=== PATIENT | female | born 1965 | race Caucasian/White ===

== ENCOUNTER 2019-12-21 10:14 | Outpatient (REF) | payer OTHER, SELFPAY ==
[2019-12-21 11:08] LABS: Glucose Urine UA NEG (NEG); Leukocyte Esterase Urine TRACE (NEG); Nitrite Urine NEG (NEG); Urine Blood NEG (NEG); Urine Ketones NEG (NEG); Urine Protein NEG (NEG-TRACE)
[2019-12-21 11:11] LABS: Appearance Urine HAZY; Color Urine YELLOW
[2019-12-21 11:43] LABS: Bacteria Urine 1+ /LPF; RBC Urine 0-2 /HPF (0); Squamous Epithelial Cell Urine 1+ /LPF
== END 2019-12-21 10:15 | disposition home or self-care (01) ==
LOC: HO.LAB 10:14
PROVIDERS: PCP Internal Medicine; Visit Provider Internal Medicine
DX: E78.01 Familial hypercholesterolemia (principal); E11.9 Type 2 diabetes mellitus without complications; E61.1 Iron deficiency; R30.0 Dysuria
CPT/HCPCS: 81001; 81003; 87086; 87088; 87186

== ENCOUNTER 2020-01-16 13:20 | Outpatient (REF) | payer OTHER, SELFPAY ==
[2020-01-16 16:43] LABS: Glucose Urine UA NEG (NEG); Leukocyte Esterase Urine NEG (NEG); Nitrite Urine POS (NEG); Urine Blood NEG (NEG); Urine Ketones NEG (NEG); Urine Protein NEG (NEG-TRACE)
[2020-01-16 16:44] LABS: Appearance Urine CLEAR; Color Urine YELLOW
[2020-01-16 16:51] LABS: Bacteria Urine 2+ /LPF; RBC Urine 0 /HPF (0); Squamous Epithelial Cell Urine 1+ /LPF; WBC Urine 0 /HPF (0-4)
== END 2020-01-16 13:21 | disposition home or self-care (01) ==
LOC: HO.HMGCLDS 13:20
PROVIDERS: PCP Internal Medicine; Visit Provider Internal Medicine
DX: E11.9 Type 2 diabetes mellitus without complications (principal); E78.01 Familial hypercholesterolemia; E61.1 Iron deficiency; R30.0 Dysuria
CPT/HCPCS: 81001; 87086; 87088; 87186

== ENCOUNTER 2020-02-04 07:39 | Outpatient (REF) | payer OTHER, SELFPAY ==
[2020-02-04 11:58] LABS: Glucose Urine UA NEG (NEG); Leukocyte Esterase Urine NEG (NEG); Nitrite Urine NEG (NEG); Urine Blood NEG (NEG); Urine Ketones NEG (NEG); Urine Protein NEG (NEG-TRACE)
[2020-02-04 12:07] LABS: Appearance Urine CLEAR; Color Urine YELLOW
== END 2020-02-04 07:40 | disposition home or self-care (01) ==
LOC: HO.HMGCLDS 07:39
PROVIDERS: PCP Internal Medicine; Visit Provider Internal Medicine
DX: N39.0 Urinary tract infection, site not specified (principal)
CPT/HCPCS: 81003

== ENCOUNTER 2020-03-10 06:20 | Outpatient (REF) | payer OTHER, SELFPAY | END 2020-03-10 06:21 | disposition home or self-care (01) | LOC: HO.LAB 06:20 | PROVIDERS: PCP Internal Medicine; Visit Provider Internal Medicine | DX: Z20.828 Contact with and (suspected) exposure to other viral communicable diseases (principal) | CPT/HCPCS: C9803; U0003 ==

== ENCOUNTER 2020-05-27 08:08 | Outpatient (REF) | payer OTHER, SELFPAY ==
[2020-05-27 11:30] LABS: Hematocrit 35.7 % (37-47); Hemoglobin 11.8 g/dl (12.0-16.0); Mean Corpuscular HGB Conc 33.1 g/dl (31.0-35.0); Mean Corpuscular Volume 90.8 fL (80-98); Mean Platelet Volume 9.8 fL (9.4-12.3); Platelet Count 449 X10*3/uL (160-400); Red Blood Count 3.93 X10*6/uL (4.20-5.50); Red Cell Distribution Width 12.6 % (11.0-16.0); White Blood Count 8.8 X10*3/uL (4.8-10.8)
[2020-05-27 11:41] LABS: Estimated Average Glucose 151 mg/dL; Hemoglobin A1c % 6.9 %
[2020-05-27 11:45] LABS: Iron 51 mcg/dL (30-160); Percent Iron Saturation 13 % (15-50); Total Iron Binding Capacity 382 mcg/dL (228-428); Unsaturated Iron Binding 331 ug/dL
[2020-05-27 11:54] LABS: Alanine Aminotransferase 14 U/L (0-31); Albumin Level 4.4 g/dL (3.5-5.0); Alkaline Phosphatase 83 U/L (39-117); Anion Gap 15 (12-20); Aspartate Amino Transferase 10 U/L (5-31); Bilirubin Total 0.3 mg/dL (0.0-1.0); Blood Urea Nitrogen 14 mg/dL (9-16); Calcium 9.9 mg/dL (8.4-10.2); Carbon Dioxide 28 mmol/L (22-29); Chloride 102 mmol/L (96-108); Cholesterol 137 mg/dL; Estimated Glomerular Filt Rate > 60; Glucose Fasting 247 mg/dL (60-99); HDL Cholesterol 47 mg/dL; LDL Cholesterol Calculated 38 mg/dl; Potassium 4.8 mmol/L (3.3-5.1); Sodium 140 mmol/L (135-145); Total Protein 6.7 g/dL (6.5-8.0); Triglycerides 263 mg/dL
[2020-05-27 12:02] LABS: Creatinine Urine 88.52 mg/dL; Microalbum/Creatinine Ratio Ur 41.7 ug/mg cr
== END 2020-05-27 08:09 | disposition home or self-care (01) ==
LOC: HO.HMGCLDS 08:08
PROVIDERS: PCP Internal Medicine; Visit Provider Internal Medicine
DX: I10 Essential (primary) hypertension (principal); N20.0 Calculus of kidney; E66.9 Obesity, unspecified; E78.5 Hyperlipidemia, unspecified
CPT/HCPCS: 36415; 80053; 80061; 82043; 83036; 83540; 85027

== ENCOUNTER 2020-06-12 11:47 | Outpatient (REF) | payer OTHER, SELFPAY ==
[2020-06-12 14:15] LABS: Glucose Urine UA NEG (NEG); Leukocyte Esterase Urine NEG (NEG); Nitrite Urine NEG (NEG); Specific Gravity - Urine 1.025 (1.005-1.025); Urine Blood NEG (NEG); Urine Ketones NEG (NEG); Urine Protein NEG (NEG-TRACE)
[2020-06-12 14:16] LABS: Appearance Urine CLEAR; Color Urine YELLOW
== END 2020-06-12 11:48 | disposition home or self-care (01) ==
LOC: HO.HMGCLNP 11:47
PROVIDERS: PCP Internal Medicine; Visit Provider Internal Medicine
DX: N20.0 Calculus of kidney (principal); I10 Essential (primary) hypertension
CPT/HCPCS: 81003

== ENCOUNTER 2020-08-21 08:49 | Outpatient (REF) | payer OTHER, SELFPAY ==
[2020-08-21 10:01] LABS: Mean Corpuscular HGB Conc 34.1 g/dl (31.0-35.0); Mean Platelet Volume 9.7 fL (9.4-12.3); Platelet Count 346 X10*3/uL (160-400); Red Blood Count 4.66 X10*6/uL (4.20-5.50); White Blood Count 8.4 X10*3/uL (4.8-10.8)
[2020-08-21 10:21] LABS: C Reactive Protein 0.76 mg/dL (< or = 0.50); Iron 73 mcg/dL (30-160); Percent Iron Saturation 16 % (15-50); Total Iron Binding Capacity 451 mcg/dL (228-428); Unsaturated Iron Binding 378 ug/dL
[2020-08-21 11:28] LABS: Folate 16.4 ng/mL (> or = 4.0); Vitamin B12 535 pg/mL (200-900)
== END 2020-08-21 08:50 | disposition home or self-care (01) ==
LOC: HO.LAB 08:49
PROVIDERS: PCP Internal Medicine; Visit Provider Internal Medicine
DX: D64.9 Anemia, unspecified (principal); R53.83 Other fatigue
CPT/HCPCS: 36415; 82607; 82746; 83540; 85027; 86140

== ENCOUNTER 2020-08-26 08:57 | Outpatient (REF) | payer OTHER, SELFPAY ==
[2020-08-26 11:20] LABS: MANUAL DIFF FLAG NO
[2020-08-26 11:33] LABS: Basophils Absolute Auto 0.1 X10*3/uL (0.0-0.2); Basophils Percent Auto 0.9 % (0-2); Eosinophils Absolute Auto 0.4 X10*3/uL (0.0-0.4); Eosinophils Percent Auto 3.8 % (0-4); Hematocrit 41.6 % (37-47); Hemoglobin 14.2 g/dl (12.0-16.0); Imm Gran Abs Auto 0.11 X10*3/uL (0.00-0.03); Imm Gran Pct Auto 1.2 % (0.0-0.4); Lymphocytes Absolute Auto 2.8 X10*3/uL (1.2-4.9); Lymphocytes Percent Auto 30.2 % (20-40); Mean Corpuscular HGB Conc 34.1 g/dl (31.0-35.0); Mean Corpuscular Hemoglobin 30.2 pg (27.0-33.0); Mean Corpuscular Volume 88.5 fL (80-98); Mean Platelet Volume 9.9 fL (9.4-12.3); Monocytes Absolute Auto 0.7 X10*3/uL (0.1-1.2); Neutrophils Absolute Auto 5.3 X10*3/uL (2.0-8.3); Neutrophils Percent Auto 56.9 % (45-73); Platelet Count 378 X10*3/uL (160-400); Red Cell Distribution Width 12.3 % (11.0-16.0); White Blood Count 9.2 X10*3/uL (4.8-10.8)
[2020-08-26 11:40] LABS: Estimated Average Glucose 217 mg/dL; Hemoglobin A1c % 9.2 %
[2020-08-26 12:04] LABS: Alanine Aminotransferase 13 U/L (0-31); Albumin Level 4.5 g/dL (3.5-5.0); Alkaline Phosphatase 87 U/L (39-117); Anion Gap 13 (12-20); Aspartate Amino Transferase 17 U/L (5-31); Bilirubin Total 0.4 mg/dL (0.0-1.0); Blood Urea Nitrogen 13 mg/dL (9-16); Calcium 10.4 mg/dL (8.4-10.2); Carbon Dioxide 28 mmol/L (22-29); Chloride 102 mmol/L (96-108); Cholesterol 162 mg/dL; Estimated Glomerular Filt Rate > 60; Glucose Fasting 215 mg/dL (60-99); HDL Cholesterol 56 mg/dL; Potassium 4.3 mmol/L (3.3-5.1); Sodium 139 mmol/L (135-145); Total Protein 7.1 g/dL (6.5-8.0); Triglycerides 427 mg/dL
[2020-08-26 12:07] LABS: TSH reflex Free T4 0.97 uIU/mL (0.32-4.0)
== END 2020-08-26 08:58 | disposition home or self-care (01) ==
LOC: HO.HMGCLDS 08:57
PROVIDERS: PCP Internal Medicine; Visit Provider Internal Medicine
DX: I10 Essential (primary) hypertension (principal); E78.5 Hyperlipidemia, unspecified; E66.9 Obesity, unspecified; E11.9 Type 2 diabetes mellitus without complications
CPT/HCPCS: 36415; 80053; 80061; 83036; 84443; 85025

== ENCOUNTER 2020-09-14 10:17 | Outpatient (REF) | payer OTHER, SELFPAY ==
--- NOTE | ~2020-09-14 | FL_ITS ---
EXAMINATION: FL BARIUM SWALLOW CLINICAL INFORMATION: Nausea COMPARISON: None TECHNIQUE: Barium swallow examination is performed using fluoroscopic evaluation in addition to multiple fluoroscopic spot views. The patient is imaged both upright and prone and using both thick and thin sulfate along with effervescent granules. Fluoroscopy time: 1.9 minutes DAP: 19.8 Gycm2 Images: 54 FINDINGS: Following oral administration of thick barium and barium coated turkey there is normal propagation bolus from the oral cavity through the pharynx, esophagus into stomach without any evidence of obstruction, narrowing or stricture. On oral administration of thin barium in prone lying position there is good opacification of the entire esophagus without obstruction or narrowing. There is small sliding hiatal hernia with mild gastroesophageal reflux. FL/FL barium swallow IMPRESSION: Small sliding hiatal hernia with mild gastroesophageal reflux.
== END 2020-09-14 10:18 | disposition home or self-care (01) ==
LOC: HO.XRAY 10:17
PROVIDERS: PCP Internal Medicine; Visit Provider Physician Assistant
DX: R10.13 Epigastric pain (principal); R11.0 Nausea; K21.9 Gastro-esophageal reflux disease without esophagitis
CPT/HCPCS: 74220

== ENCOUNTER 2020-09-15 07:20 | Outpatient (REF) | payer OTHER, SELFPAY ==
--- NOTE | ~2020-09-15 | US_ITS ---
EXAMINATION: US ABDOMEN LIMITED CLINICAL INFORMATION: Right upper quadrant pain. COMPARISON: Ultrasound kidneys dated 07/03/2019 09/06/20192010. KUBs dated 05/14/2020 and 03/04/2020. TECHNIQUE: Real-time imaging of the right upper quadrant abdominal viscera. FINDINGS: PANCREAS: Not well visualized due to bowel gas. LIVER: There is fatty infiltration of the liver. No focal liver lesion is seen. There is no intrahepatic biliary duct dilatation seen. GALLBLADDER: Normal. The gallbladder is physiologically distended without evidence of stones, sludge, polyps, wall thickening or pericholecystic fluid. COMMON BILE DUCT: Not well visualized. The visualized common bile duct is normal in caliber measuring 0.59 cm in diameter. RIGHT KIDNEY: There is a 3 mm echogenic density with twinkle artifact in the midpole questionable for a stone. No hydronephrosis or renal calculi. The kidney measures 10.6 cm in maximum dimension. The previously identified right perinephric hematoma is no longer seen. FREE FLUID: None. US/US abdomen limited IMPRESSION: Echogenic liver suggestive of fatty infiltration. Normal-appearing gallbladder. Question small right renal stone. Limited visualization of the pancreas and common bile duct.
== END 2020-09-15 07:21 | disposition home or self-care (01) ==
LOC: HO.US 07:20
PROVIDERS: Visit Provider Internal Medicine
DX: R10.11 Right upper quadrant pain (principal)
CPT/HCPCS: 76705

== ENCOUNTER 2020-11-04 10:36 | Outpatient (REF) | payer OTHER, SELFPAY ==
--- NOTE | ~2020-11-04 | XR_ITS ---
EXAMINATION: XR CHEST 2 VIEWS CLINICAL INFORMATION: Wheezing; history of asthma. COMPARISON: Chest radiograph dated 02/20/2016. TECHNIQUE: Frontal and lateral views of the chest were obtained. FINDINGS: The heart, great vessels, pulmonary vasculature and mediastinum are normal. The lungs show no focal infiltrate, effusion or pneumothorax. There is no acute osseous abnormality. XR/XR chest 2V IMPRESSION: No active cardiopulmonary disease.
== END 2020-11-04 10:37 | disposition home or self-care (01) ==
LOC: HO.XRAY 10:36
PROVIDERS: PCP Internal Medicine; Visit Provider Physician Assistant
DX: R05 Cough (principal); R06.2 Wheezing
CPT/HCPCS: 71046

== ENCOUNTER 2020-11-18 14:44 | Outpatient (REF) | payer OTHER, SELFPAY ==
[2020-11-18 16:58] LABS: Appearance Urine CLEAR; Color Urine YELLOW; Glucose Urine UA NEG (NEG); Leukocyte Esterase Urine NEG (NEG); Nitrite Urine NEG (NEG); PH 5.5 (5.0-8.0); Specific Gravity - Urine >= 1.030 (1.005-1.025); Urine Blood NEG (NEG); Urine Ketones NEG (NEG); Urine Protein NEG (NEG-TRACE)
== END 2020-11-18 14:45 | disposition home or self-care (01) ==
LOC: HO.LAB 14:44
PROVIDERS: PCP Internal Medicine; Visit Provider Physician Assistant
DX: N20.0 Calculus of kidney (principal)
CPT/HCPCS: 81003

== ENCOUNTER 2020-12-07 13:17 | Outpatient (REF) | payer OTHER, SELFPAY ==
[2020-12-07 14:59] LABS: Erythrocyte Sedimentation Rate 5 MM/HR (0-20)
[2020-12-07 15:06] LABS: Thyroid Stimulating Hormone 0.76 uIU/mL (0.32-4.0)
[2020-12-07 15:07] LABS: Albumin Level 4.5 g/dL (3.5-5.0); C Reactive Protein 0.57 mg/dL (< or = 0.50)
[2020-12-12 10:47] LABS: Endomysial IgA Antibody Negative (Negative)
[2020-12-14 09:12] LABS: Transglutaminase IgA <1.0 U/mL
== END 2020-12-07 13:18 | disposition home or self-care (01) ==
LOC: HO.LAB 13:17
PROVIDERS: PCP Internal Medicine; Visit Provider Physician Assistant
DX: R19.7 Diarrhea, unspecified (principal); E11.9 Type 2 diabetes mellitus without complications; K59.09 Other constipation
CPT/HCPCS: 36415; 82040; 83516; 84443; 85652; 86140; 86255; 86256

== ENCOUNTER 2020-12-08 14:18 | Outpatient (REF) | payer OTHER, SELFPAY ==
[2020-12-08 15:22] LABS: CDiff Gene PCR NEGATIVE (Negative)
== END 2020-12-08 14:19 | disposition home or self-care (01) ==
LOC: HO.LNP 14:18
PROVIDERS: Visit Provider Physician Assistant
DX: R19.7 Diarrhea, unspecified (principal); K59.09 Other constipation
CPT/HCPCS: 87177; 87209; 87329; 87493

== ENCOUNTER 2021-01-04 07:46 | Emergency (ER) | payer OTHER, SELFPAY ==
--- NOTE | ~2021-01-04 | CT_ITS ---
EXAMINATION: CT ABDOMEN AND PELVIS WITH CONTRAST CLINICAL INFORMATION: Abdominal pain. COMPARISON: None TECHNIQUE: Multidetector volumetric images were obtained from the superior aspect of the liver through the pubic symphysis following administration 85 mL of Omnipaque 350 intravenous contrast. Sagittal and coronal reformatted images were obtained on the technologist's workstation. Oral contrast: No This CT examination was performed using dose optimization techniques as appropriate, variously including the following: *Automated exposure control *Adjustment of mA and/or kV according to patient size (this includes techniques or standardized protocols for targeted exams where dose is matched to indication/reason for exam; i.e. extremities or head) *Use of iterative reconstruction technique DLP: 653 mGy-cm FINDINGS: LUNG BASES: The visualized lung bases are unremarkable. LIVER, GALLBLADDER, AND BILIARY TREE: Diffuse decreased attenuation without focal abnormality. No gallbladder/biliary abnormality PANCREAS: Unremarkable. SPLEEN: Unremarkable. ADRENAL GLANDS: A left adrenal nodule measures 1.5 cm (HU 47), (image 26, series 3). The right adrenal gland is unremarkable. 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 There is mild right hydroureteronephrosis caused by a 0.6 cm (HU 546) ovoid calculus in the distal one third of the right ureter (image 69, series 3). The left kidney shows a noncalcified, fluid attenuation focus in the lower pole measuring 1.1 cm (image 64, series 4). BLADDER: Unremarkable. GASTROINTESTINAL TRACT: The stomach and small bowel are unremarkable. The appendix is not calculi identified. The colon is unremarkable. ABDOMINAL WALL: Small to moderate-sized fat-containing umbilical hernia without associated abnormality. LYMPH NODES: Normal. VASCULAR: Unremarkable. PELVIC VISCERA: Unremarkable. OSSEOUS STRUCTURES: Mild multilevel degenerative changes in the thoracolumbar spine and sacroiliac joints bilaterally. CT/CT abdomen pelvis w con IMPRESSION: 1. Mild right hydroureteronephrosis caused by a 0.6 cm calculus in the distal one third of the right ureter. 2. Hepatic steatosis. 3. Left adrenal nodule is indeterminate. This could be monitored for stability with a CT scan of the abdomen and pelvis with and without intravenous contrast utilizing adrenal nodule protocol and one year.
[2021-01-04 07:58] VITALS: BP 188/72; PULSE 61; RESP 16; TEMP 36.7; O2SAT 99; BMI 35.4
[2021-01-04] MEDS: Ondansetron ODT 4 MG TAB.RAPDIS TRANSLINGU (08:05)
--- NOTE | 2021-01-04 08:53 | ED_ITS ---
HPI - Abdominal Pain General Chief Complaint: Abdominal Pain Stated Complaint: low rt abd pain Time Seen by Provider: 01/04/21 08:44 Source: patient Mode of arrival: ambulatory Limitations: no limitations History of Present Illness HPI narrative: 55-year-old female presents to the emergency department complaining of right lower quadrant pain. She states that she woke up during the night approximately 6 hours prior to arrival with abdominal pain. She denies cough fever or chest pain she states she is immunized for COVID she states she still has appendix as well. History of diverticulosis without any diverticulitis history. She denies having this pain in the past she has nausea vomiting and diarrhea as well. She gets Zofran with resolution of her nausea prior to my arrival in the room. MD elicited complaint: abdominal pain Related Data Home Medications Medication Instructions Recorded Confirmed alprazolam 0.25 mg tablet 0.25 mg PO DAILY PRN 02/25/20 09/25/20 aspirin 81 mg tablet,delayed 81 mg PO DAILY 02/25/20 09/25/20 release duloxetine 60 mg capsule,delayed 120 mg PO DAILY cap 02/25/20 09/25/20 release flu vac qs 2019(4 yr up)CD(PF) ml IM 02/25/20 09/25/20 oxcarbazepine 300 mg tablet 300 mg PO BID 02/25/20 09/25/20 omega-3 fatty acids 1,000 mg 1,000 mg PO DAILY 08/26/20 09/25/20 capsule (Fish Oil Concentrate) valacyclovir 500 mg tablet 500 mg PO DAILY 08/26/20 09/25/20 Previous Rx's Medication Instructions Recorded estradiol 10 mcg vaginal tablet 10 mcg VAGINAL 2XW #90 tab 02/25/20 losartan 50 mg tablet 50 mg PO BID #180 tab 05/27/20 cyclobenzaprine 5 mg tablet 5 - 10 mg PO TID PRN #15 tab 08/04/20 naproxen 500 mg tablet 500 mg PO BID PRN #30 tab 08/04/20 albuterol sulfate 90 mcg/actuation 1 puff INHALATION Q4H #8.5 g 08/26/20 aerosol inhaler amlodipine 2.5 mg tablet 2.5 mg PO DAILY #90 tab 10/05/20 insulin glargine 100 unit/mL See Rx Instructions SUBCUT 10/05/20 subcutaneous solution .COMPLEX #30 ml insulin lispro 100 unit/mL 10 unit SUBCUT BID #15 ml 10/05/20 subcutaneous pen (Humalog KwikPen (U-100) Insulin) metformin 1,000 mg tablet 1,000 mg PO BID #180 tab 10/05/20 omeprazole 40 mg capsule,delayed 40 mg PO DAILY #90 cap 10/05/20 release rosuvastatin 20 mg tablet 20 mg PO DAILY #90 tab 10/29/20 metoprolol tartrate 50 mg tablet 50 mg PO BID #180 tab 11/17/20 blood-glucose sensor (Dexcom G6 1 ea TOPICAL DIRECTED #3 ea 12/14/20 Sensor) insulin degludec 200 unit/mL (3 70 unit SUBCUT BID #27 ml 12/15/20 mL) subcutaneous pen (Tresiba FlexTouch U-200 insulin) pen needle, diabetic 32 gauge x #100 ea 12/23/20 (BD Ultra-Fine Ellen Pen Needle) blood-glucose transmitter (Dexcom #1 ea 01/01/21 G6 Transmitter) Allergies Allergy/AdvReac Type Severity Reaction Status Date / Time atorvastatin [Lipitor] Allergy Unknown body aches Verified 01/04/21 08:05 azithromycin [From Zithromax] Allergy Unknown Unknown Verified 01/04/21 08:05 codeine [CODEINE] Allergy Unknown UNKNOWN Verified 01/04/21 08:05 liraglutide [Victoza] Allergy Unknown vomiting Verified 01/04/21 08:05 metronidazole [From FLAGYL] Allergy Unknown UNKNOWN Verified 01/04/21 08:05 external yeast cream Allergy Unknown unknown Uncoded 08/04/20 08:07 Review of Systems Review of Systems Review of systems: General: Patient denies any fever chills recent illness or falls Musculoskeletal: Denies back pain or body aches or other injuries HEENT: denies headache, runny nose, ear pain Respiratory: denies shortness of breath, cough Cardiovascular: no chest pain or palpitations : denies dysuria, frequency Abdomen: Diarrhea nausea vomiting right lower quadrant abdominal pain Extremities: no swelling, no pain Skin: no diaphoresis Yes all other systems are reviewed and are negative Physical Exam Vital Signs: Vital Signs: Last Vital Signs Temp 98.0 F 01/04/21 07:58 Pulse 67 01/04/21 11:35 Resp 18 01/04/21 11:35 BP 163/74 H 01/04/21 11:35 Pulse Ox 98 01/04/21 11:35 Body Mass Index 35.4 General: Well-appearing well-nourished in no signs of distress HEENT: Normocephalic atraumatic Neck: No signs of JVD, no masses no tenderness or lymphadenopathy Cardiovascular: Regular rate and rhythm Respiratory: Clear to auscultation bilaterally Abdomen: Soft tender to right mid to upper abdomen Extremities: Normal pedal pulses no signs of edema Skin: Dry warm no rashes Back: No tenderness full ROM MDM - Abdominal Pain MDM Narrative Medical decision making narrative: Patient with abdominal pain on the right side to right upper although patient for CT scan check labs including of these lipase give the patient fluids and morphine. Pain well controlled with morphine I will give patient some Toradol CT shows a 6 mm stone. Urine still pending. Patient has a known stone on the right side he states he has been in her kidney they did try lithotripsy which ended up with a large hematoma she is followed at [facility]. I feel comfortable sending the patient home. I called lab who stated there were 1 to 4 WBC's I feel comfortable sending home off antibiotics WBC with no signs of infection and looks so comfortable. Differential Diagnosis Differential diagnosis: Likely abdominal pain, acute appendicitis, diverticulitis, gastroenteritis, gastritis, pancreatitis and peptic ulcer disease Lab Data Result diagrams: 01/04/21 09:31 01/04/21 09:31 Labs: Lab Results 01/04/21 01/04/21 01/04/21 Range/Units 09:31 09:31 11:58 WBC 13.5 H (4.8-10.8) X10*3/uL RBC 4.33 (4.20-5.50) X10*6/uL Hgb 13.2 (12.0-16.0) g/dl Hct 38.4 (37-47) % MCV 88.7 (80-98) fL MCH 30.5 (27.0-33.0) pg MCHC 34.4 (31.0-35.0) g/dl RDW 12.1 (11.0-16.0) % Plt Count 327 (160-400) X10*3/uL MPV 9.4 (9.4-12.3) fL Immature Gran % (Auto) 0.6 H (0.0-0.4) % Neut % (Auto) 70.1 (45-73) % Lymph % (Auto) 16.0 L (20-40) % [place]lier % (Auto) 6.7 (2-11) % Eos % (Auto) 6.1 H (0-4) % Baso % (Auto) 0.5 (0-2) % Lymph # (Auto) 2.2 (1.2-4.9) X10*3/uL [place]lier # (Auto) 0.9 (0.1-1.2) X10*3/uL Eos # (Auto) 0.8 H (0.0-0.4) X10*3/uL Baso # (Auto) 0.1 (0.0-0.2) X10*3/uL Abs Immat Gran (auto) 0.08 H (0.00-0.03) X10*3/uL Absolute Neuts (auto) 9.5 H (2.0-8.3) X10*3/uL Absolute Nucleated RBC 0.000 (0.0-0.012) X10*3/uL Nucleated RBC % (auto) 0.0 (0.0-0.2) /100WBC Sodium 140 (135-145) mmol/L Potassium 5.3 H D (3.3-5.1) mmol/L Chloride 105 (96-108) mmol/L Carbon Dioxide 23 (22-29) mmol/L Anion Gap 17 (12-20) BUN 12 (9-16) mg/dL Creatinine 0.74 (0.5-1.4) mg/dL Estim Creat Clear Calc 89.7 Estimated GFR > 60 Random Glucose 202 H (60-115) mg/dL Calcium 10.1 (8.4-10.2) mg/dL Total Bilirubin 0.6 (0.0-1.0) mg/dL Direct Bilirubin 0.2 (0.0-0.5) mg/dL AST 32 H D (5-31) U/L ALT 21 (0-31) U/L Alkaline Phosphatase 69 D (39-117) U/L Total Protein 7.2 (6.5-8.0) g/dL Albumin 4.3 (3.5-5.0) g/dL Lipase 10 (8-78) U/L Urine Color YELLOW Urine Appearance HAZY Urine pH 6.0 (5.0-8.0) Ur Specific [place] >= 1.030 H (1.005-1.025) Urine Protein 1+ H (NEG-TRACE) MG/DL Urine Glucose (UA) NEG (NEG) MG/DL Urine Ketones NEG (NEG) MG/DL Urine Blood 3+ H (NEG) Urine Nitrite POS H (NEG) Ur Leukocyte Esterase NEG (NEG) Discharge Plan Discharge Clinical Impression: Kidney stone on right side Patient Disposition: Home, Self-Care Instructions: Kidney Stones (ED) Additional Instructions: Please call follow-up with urologist if you have any other concerns please do not hesitate to come back to emergency department. Prescriptions: No Action amlodipine 2.5 mg tablet 2.5 mg PO DAILY Qty: 90 RF: 3 omeprazole 40 mg capsule,delayed release(DR/EC) 40 mg PO DAILY Qty: 90 RF: 3 metformin 1,000 mg tablet 1,000 mg PO BID Qty: 180 RF: 3 insulin lispro [Humalog KwikPen Insulin] 100 unit/mL insulin pen 10 unit subcut BID Qty: 15 RF: 4 insulin glargine 100 unit/mL solution See Rx Instructions subcut .COMPLEX Qty: 30 RF: 4 rosuvastatin 20 mg tablet 20 mg PO DAILY Qty: 90 RF: 3 metoprolol tartrate 50 mg tablet 50 mg PO BID Qty: 180 RF: 3 Dexcom G6 Sensor Device 1 ea topical DIRECTED Qty: 3 RF: 11 Tresiba FlexTouch U-200 200 unit/mL (3 mL) insulin pen 70 unit subcut BID Qty: 27 RF: 8 (DME) pen needle, diabetic [BD Ultra-Fine Ellen Pen Needle] 32 gauge x 5/32 needle See Rx Instructions .ROUTE .MEDSUPPLY Qty: 100 RF: 3 (DME) Dexcom G6 Transmitter Device See Rx Instructions .ROUTE .MEDSUPPLY Qty: 1 RF: 3 valacyclovir 500 mg tablet 500 mg PO DAILY RF: 0 omega-3 fatty acids [Fish Oil Concentrate] 1,000 mg capsule 1,000 mg PO DAILY RF: 0 albuterol sulfate 90 mcg/actuation HFA aerosol inhaler 1 puff inhalation Q4H Qty: 8.5 RF: 4 cyclobenzaprine 5 mg tablet 5 - 10 mg PO TID PRN (Reason: muscle spasm) Qty: 15 RF: 0 naproxen 500 mg tablet 500 mg PO BID PRN (Reason: pain) Qty: 30 RF: 0 alprazolam 0.25 mg tablet 0.25 mg PO DAILY PRNRF: 0 aspirin 81 mg tablet,delayed release (DR/EC) 81 mg PO DAILY RF: 0 oxcarbazepine 300 mg tablet 300 mg PO BID RF: 0 Flucelvax Quad (PF) 60 mcg (15 mcg x 4)/0.5 mL syringe IM RF: 0 duloxetine 60 mg capsule,delayed release(DR/EC) 120 mg PO DAILY RF: 0 estradiol 10 mcg tablet 10 mcg vaginal 2XW Qty: 90 RF: 0 losartan 50 mg tablet 50 mg PO BID Qty: 180 RF: 3 PMFSH Past Medical History Medical History Anemia Annual physical exam Anxiety Depression Fatigue Frequent urinary tract infections GERD (gastroesophageal reflux disease) HTN (hypertension) Hyperlipidemia IDDM (insulin dependent diabetes mellitus) Mammogram normal Nephrolithiasis Normal Pap smear Obesity Osteoarthritis of knees, bilateral RUQ abdominal pain Sleep apnea Surgical History H/O colonoscopy No pertinent past surgical history Family History Family History Father No problems noted. Mother Renal failure Brother No problems noted. Brother Sarcoidosis Sister No problems noted. Daughter Asperger's disorder ADHD Social History Social History Housing: House Alcohol intake: current Alcohol intake frequency: holidays/special occasions only Patient Tobacco Use Status: Former Tobacco user e-Cigarette/Vaping Use: Never Used Second Hand Smoke Exposure: No Use of substances other than those prescribed or required for medical reasons: No Advance Directives: No Patient : No service: No Current occupational status: employed Current occupation: [employer]
[2021-01-04 09:35] LABS: MANUAL DIFF FLAG NO
[2021-01-04] MEDS: Morphine Sulfate 4 MG/ML CARTRIDGE IVPUSH (09:39)
[2021-01-04] MEDS: 0.9 % Sodium Chloride 500 ML 999 ML IV ×2 (09:39→11:33)
[2021-01-04 09:40] LABS: Basophils Absolute Auto 0.1 X10*3/uL (0.0-0.2); Basophils Percent Auto 0.5 % (0-2); Eosinophils Absolute Auto 0.8 X10*3/uL (0.0-0.4); Eosinophils Percent Auto 6.1 % (0-4); Hematocrit 38.4 % (37-47); Hemoglobin 13.2 g/dl (12.0-16.0); Imm Gran Abs Auto 0.08 X10*3/uL (0.00-0.03); Imm Gran Pct Auto 0.6 % (0.0-0.4); Lymphocytes Absolute Auto 2.2 X10*3/uL (1.2-4.9); Mean Corpuscular HGB Conc 34.4 g/dl (31.0-35.0); Mean Corpuscular Hemoglobin 30.5 pg (27.0-33.0); Mean Corpuscular Volume 88.7 fL (80-98); Mean Platelet Volume 9.4 fL (9.4-12.3); Monocytes Absolute Auto 0.9 X10*3/uL (0.1-1.2); Monocytes Percent Auto 6.7 % (2-11); Neutrophils Absolute Auto 9.5 X10*3/uL (2.0-8.3); Neutrophils Percent Auto 70.1 % (45-73); Platelet Count 327 X10*3/uL (160-400); Red Blood Count 4.33 X10*6/uL (4.20-5.50); Red Cell Distribution Width 12.1 % (11.0-16.0); White Blood Count 13.5 X10*3/uL (4.8-10.8)
--- NOTE | 2021-01-04 09:40 | PC.NURSE ---
pt alert and oriented, skin pwd, respirations even and unlabored, pt reports right lower abd pain, vomiting/diarrhea that started this morning.
[2021-01-04 10:02] LABS: Alanine Aminotransferase 21 U/L (0-31); Albumin Level 4.3 g/dL (3.5-5.0); Alkaline Phosphatase 69 U/L (39-117); Anion Gap 17 (12-20); Aspartate Amino Transferase 32 U/L (5-31); Bilirubin Direct 0.2 mg/dL (0.0-0.5); Bilirubin Total 0.6 mg/dL (0.0-1.0); Blood Urea Nitrogen 12 mg/dL (9-16); Calcium 10.1 mg/dL (8.4-10.2); Carbon Dioxide 23 mmol/L (22-29); Chloride 105 mmol/L (96-108); Creatinine Clr Calc Pharmacy 89.7; Estimated Glomerular Filt Rate > 60; Glucose Random 202 mg/dL (60-115); Lipase 10 U/L (8-78); Potassium 5.3 mmol/L (3.3-5.1); Sodium 140 mmol/L (135-145); Total Protein 7.2 g/dL (6.5-8.0)
[2021-01-04] MEDS: iohexoL 350 MG/ML 100 ML INFUS..BTL IV (11:07)
[2021-01-04 11:35] VITALS: BP 163/74; PULSE 67; RESP 18; O2SAT 98
--- NOTE | 2021-01-04 11:51 | PC.NURSE ---
patient a&ox3, vss, family at bedside, ivf running per order, awaiting results of radiology, will continue to monitor
[2021-01-04 12:06] LABS: Appearance Urine HAZY; Color Urine YELLOW; Glucose Urine UA NEG (NEG); Leukocyte Esterase Urine NEG (NEG); Nitrite Urine POS (NEG); Specific Gravity - Urine >= 1.030 (1.005-1.025); UACC Culture Trigger YES; Urine Blood 3+ (NEG); Urine Ketones NEG (NEG); Urine Protein 1+ MG/DL (NEG-TRACE)
[2021-01-04 12:40] LABS: Bacteria Urine 4+ /LPF; Squamous Epithelial Cell Urine TRACE /LPF
== END 2021-01-04 12:57 | disposition home or self-care (01) ==
PROVIDERS: Emergency Provider Student in an Organized Health Care Education/Training Program; PCP Internal Medicine
DX: N20.0 Calculus of kidney (principal); N39.0 Urinary tract infection, site not specified; Z79.899 Other long term (current) drug therapy
CPT/HCPCS: 36415; 74177; 80048; 80076; 81001; 83690; 85025; 87086; 87186; 96374; 99284; J2270; Q9967

== ENCOUNTER 2021-01-11 14:09 | Day surgery (SDC) | payer OTHER, SELFPAY ==
--- NOTE | 2021-01-08 15:17 | HO.ANESPROP2 ---
Documented by User: Katharine Sims NP 01/08/21 15:27 HPI - Anesthesia Eval Consult details Narrative: 55yo F for Right Cystoscopy, Ureteroroscopy, Retro, Laser with Stent 01/07/21 T/C with patient - reports slow to metabolize Rocuronium. Requesting TIVA PMFSH Active Problems Active Problems: All Active Problems (Updated 01/08/21 @ 14:10 by CLAUDIA Theodore) Kidney stone on right side (Acute) UTI (urinary tract infection) (Acute) Adrenal mass (Acute) Diarrhea (Acute) Wheeze (Acute) Chronic cough (Acute) Acid reflux (Acute) Nausea (Acute) Epigastric pain (Acute) RUQ abdominal pain (Acute) Annual physical exam (Acute) Fatigue (Acute) Cervical paraspinous muscle spasm (Acute) Anemia (Acute) Nephrolithiasis (Acute) HTN (hypertension) (Acute) Obesity (Acute) Osteoarthritis of knees, bilateral (Acute) Mammogram normal (Acute) Normal Pap smear (Acute) Hyperlipidemia (Acute) IDDM (insulin dependent diabetes mellitus) (Acute) Frequent urinary tract infections (Acute) Past Medical History Medical History Adrenal mass Anemia Annual physical exam Anxiety Depression Fatigue Frequent urinary tract infections GERD (gastroesophageal reflux disease) HTN (hypertension) Hyperlipidemia IDDM (insulin dependent diabetes mellitus) Mammogram normal Nephrolithiasis Normal Pap smear Obesity Osteoarthritis of knees, bilateral RUQ abdominal pain Sleep apnea Family History Family History Father No problems noted. Mother Renal failure Brother No problems noted. Brother Sarcoidosis Sister No problems noted. Daughter Asperger's disorder ADHD Surgical History Surgical History H/O colonoscopy No pertinent past surgical history Social History Social History Housing: House Alcohol intake: current Alcohol intake frequency: holidays/special occasions only Patient Tobacco Use Status: Former Tobacco user e-Cigarette/Vaping Use: Never Used Second Hand Smoke Exposure: No Use of substances other than those prescribed or required for medical reasons: No Are you DNR?: No Advance Directives: No Advance Directives Information Provided: Yes service: No Current occupational status: employed Current occupation: RN Meds Allergies Allergy/AdvReac Type Severity Reaction Status Date / Time codeine [CODEINE] Allergy Severe Hives Verified 01/11/21 15:09 liraglutide [Victoza] Allergy Severe vomiting Verified 01/11/21 15:09 metronidazole [From FLAGYL] Allergy Severe Anaphylaxis Verified 01/11/21 15:09 azithromycin [From Zithromax] Allergy Intermediate Hives Verified 01/11/21 15:09 atorvastatin [Lipitor] Allergy Mild body aches Verified 01/11/21 15:09 external yeast cream Allergy Intermediate Itching Uncoded 01/11/21 15:09 Home Medications Medication Instructions Recorded Confirmed Last Taken Type alprazolam 0.25 mg tablet 0.25 mg PO DAILY PRN 02/25/20 09/25/20 Unknown History aspirin 81 mg tablet,delayed 81 mg PO DAILY 02/25/20 09/25/20 Unknown History release duloxetine 60 mg capsule,delayed 120 mg PO DAILY cap 02/25/20 09/25/20 Unknown History release flu vac qs 2019(4 yr up)CD(PF) ml IM 02/25/20 09/25/20 Unknown History oxcarbazepine 300 mg tablet 300 mg PO BID 02/25/20 09/25/20 Unknown History omega-3 fatty acids 1,000 mg 1,000 mg PO DAILY 08/26/20 09/25/20 Unknown History capsule (Fish Oil Concentrate) valacyclovir 500 mg tablet 500 mg PO DAILY 08/26/20 09/25/20 Unknown History Exam Exam Date and Time: January 08, 2021 151 Pertinent Lab Results Pertinent Lab Results: Laboratory Tests 01/04/21 01/04/21 09:31 09:31 WBC 13.5 H Hgb 13.2 Hct 38.4 Plt Count 327 Sodium 140 Potassium 5.3 H D Chloride 105 Carbon Dioxide 23 BUN 12 Creatinine 0.74 Assessment and Plan Assessment Anesthesia Assessment: Chart Reviewed Documented by User: Tracie Carlos MD 01/11/21 15:14 [facility] Past Medical History Medical History Adrenal mass Anemia Annual physical exam Anxiety Depression Fatigue Frequent urinary tract infections GERD (gastroesophageal reflux disease) HTN (hypertension) Hyperlipidemia IDDM (insulin dependent diabetes mellitus) Mammogram normal Nephrolithiasis Normal Pap smear Obesity Osteoarthritis of knees, bilateral RUQ abdominal pain Sleep apnea Family History Family History Father No problems noted. Mother Renal failure Brother No problems noted. Brother Sarcoidosis Sister No problems noted. Daughter Asperger's disorder ADHD Surgical History Surgical History H/O colonoscopy No pertinent past surgical history History of Problems with Anesthesia: No Social History Social History Housing: House Alcohol intake: current Alcohol intake frequency: holidays/special occasions only Patient Tobacco Use Status: Former Tobacco user e-Cigarette/Vaping Use: Never Used Second Hand Smoke Exposure: No Use of substances other than those prescribed or required for medical reasons: No Are you DNR?: No Advance Directives: No Advance Directives Information Provided: Yes service: No Current occupational status: employed Current occupation: RN Meds Allergies Allergy/AdvReac Type Severity Reaction Status Date / Time codeine [CODEINE] Allergy Severe Hives Verified 01/11/21 15:09 liraglutide [Victoza] Allergy Severe vomiting Verified 01/11/21 15:09 metronidazole [From FLAGYL] Allergy Severe Anaphylaxis Verified 01/11/21 15:09 azithromycin [From Zithromax] Allergy Intermediate Hives Verified 01/11/21 15:09 atorvastatin [Lipitor] Allergy Mild body aches Verified 01/11/21 15:09 external yeast cream Allergy Intermediate Itching Uncoded 01/11/21 15:09 Home Medications Medication Instructions Recorded Confirmed Last Taken Type alprazolam 0.25 mg tablet 0.25 mg PO DAILY PRN 02/25/20 09/25/20 Unknown History aspirin 81 mg tablet,delayed 81 mg PO DAILY 02/25/20 09/25/20 Unknown History release duloxetine 60 mg capsule,delayed 120 mg PO DAILY cap 02/25/20 09/25/20 Unknown History release flu vac qs 2019(4 yr up)CD(PF) ml IM 02/25/20 09/25/20 Unknown History oxcarbazepine 300 mg tablet 300 mg PO BID 02/25/20 09/25/20 Unknown History omega-3 fatty acids 1,000 mg 1,000 mg PO DAILY 08/26/20 09/25/20 Unknown History capsule (Fish Oil Concentrate) valacyclovir 500 mg tablet 500 mg PO DAILY 08/26/20 09/25/20 Unknown History Exam Airway Mallampati Class: III TM Dist: >3cm Neck ROM: Full Loose/Missing/Broken Teeth: No Heart: RRR Lungs: CTA Assessment and Plan Assessment Anesthesia Assessment: Anesthesia Plan Discussed Final Anesthetic Review History of Problems with Anesthesia: No NPO: Yes ASA Class: III Final Preanesthetic Review: Meds/Allgs Chart Reviewed, Consent Obtained/Reviewed and Anes Risks/Benef Reviewed Patient Risk: Intermediate Procedure Risk: Low Anesthetic Plan Anesthetic Plan: GA Disposition: Standard PACU
[2021-01-11] VITALS (7 sets, daily range): BP systolic 110–174; BP diastolic 56–93; PULSE 61–82; RESP 16–20; TEMP 36.1–36.7; O2SAT 93–97; BMI 38.9
--- NOTE | ~2021-01-11 | FL_ITS ---
EXAMINATION: XR FLUOROSCOPY WITH IMAGES CLINICAL INFORMATION: Right ureteral stone. COMPARISON: Previous CT of the abdomen and pelvis 01/04/2021. TECHNIQUE: Fluoroscopy performed by Dr. Elkins. Fluoroscopy time: 0.427 minutes Dose: 28 mGy Images: 1 FINDINGS: Single fluoroscopic image demonstrates contrast opacification of the right distal ureter. FL/FL guidance in OR IMPRESSION: Fluoroscopy guidance for right retrograde exam.
[2021-01-11] MEDS: Lactated Ringers 1,000 ML 100 ML IVCONT (14:54)
--- NOTE | 2021-01-11 14:56 | PC.NURSE ---
per pt she told dr mccollum she is taking cefzol bid. per dr mccollum do not need to give lefovloxacin.
--- NOTE | 2021-01-11 14:59 | MHC.SHP ---
Pre-Procedural Eval Section A Date of Service: 01/11/21 Section B Chief Complaint: Calculus of kidney Details of Present Illness: Right Relevant Family History (Specify if Yes): No Relevant Social History: None Present Medications: see Short Stay Collaborative assessment Medical History: No relevant PMH History of Previous Operations: No relevant previous surgery Allergies: Allergies Allergy/AdvReac Type Severity Reaction Status Date / Time atorvastatin [Lipitor] Allergy Unknown body aches Verified 01/04/21 08:05 azithromycin [From Zithromax] Allergy Unknown Unknown Verified 01/04/21 08:05 codeine [CODEINE] Allergy Unknown UNKNOWN Verified 01/04/21 08:05 liraglutide [Victoza] Allergy Unknown vomiting Verified 01/04/21 08:05 metronidazole [From FLAGYL] Allergy Unknown UNKNOWN Verified 01/04/21 08:05 external yeast cream Allergy Unknown unknown Uncoded 08/04/20 08:07 Review of Systems Sugical H&P ROS: Negative: Constitution, Cardiovascular, Respiratory, Neurological, Psychiatric, Hem-Onc, Allergic/Immunologic, Gastrointestinal, Genitourinary, Musculoskeletal, Integumentary, Endocrine and Eyes/Ears/Nose/Throat Exam Surgical H&P Exam: Normal: HEENT, Normal: Heart, Normal: Lungs, Normal: Extremities, Normal: Abdomen, Normal: Skin and Normal: Neurological Plan Diagnosis/Plan: Unchanged (Cystoscopy, right retrograde, right ureteroscopy laser lithotripsy, stent placement) I have reviewed the history and physical and performed a pertinent physical examination on my patient. No changes have occurred unless specified.
--- NOTE | 2021-01-11 16:11 | P.OP_ITS ---
Operative Note Operative Note Date of Service: 01/11/21 Narrative: PreOperative Diagnosis: Right distal ureteric stone with hydroureteronephrosis Post Operative Diagnosis: Right distal ureteric stone with hydroureteronephrosis Procedure: - cystoscopy, right retrograde - right ureteroscopy, laser lithotripsy, stone basketing - right 6 Honduran by 22 cm stent placement Surgeon: Dr Uday Elkins Anesthesia: General Indications for procedure: 55-year-old female. First-time stone former. Had stone in right kidney. Prior ESWL. Had not moved in had been stable. Recently moved down into right distal ureter with associated pain, nausea and presentation to emergency room. Based on stone location recommendation is for ureteroscopy with laser lithotripsy and stent placement. Risks, benefits and alternative to therapy have been discussed. Procedure: After informed consent was verified patient was brought to the operating placed in supine position. Anesthesia was administered per protocol. Patient was placed in modified dorsal lithotomy position and prepped and draped in a sterile fashion. Safety pause time-out and side of surgery confirmed. Antibiotics confirmed. Twenty-two Honduran cystoscope inserted per urethra. Bladder examined in its entirety. Right ureter in normal position. Retrograde examination performed. Filling defects seen with 6 mm distal right ureteric stone proximally 1.5 cm from ureteric orifice. Sensor guidewire was placed without difficulty around stone up to the level renal pelvis. Unable to advance ureteric catheter over Sensor guidewire. Rigid ureteroscopy performed. Stone encountered 1.5 cm from ureteric orifice. Using a 360 micron holmium laser fiber the stone was broken into small pieces. We were then able to use a flat wire basket to remove stone fragments from the ureter. These will be sent for analysis. Multiple passes were required. Once ureter was free of all reasonable sized fragments a decision was made to place a ureteric stent. A 6 Honduran by 22 cm double-J stent was placed under fluoroscopy. Using the inferior portion of the symphysis pubis for guidance. After the stent was placed we could see repositioning occurring all on the fluoroscopy which seemed to indicate this stent was migrating proximally. We re-examined the bladder with the cystoscope and found that the end of the stent had migrated into the distal portion of the ureter. Using the rigid ureteral scope and the flat wire basket we were able to enter the ureter and find the distal portion of the stent and using the flat wire basket secure the stent and removed this into the bladder. The stent was then positioned with sufficient curl within the bladder. Bladder was emptied. She tolerated procedure well was extubated in operating room, and transferred in stable condition to the recovery area. Pathology: Stone Drains: 6 Honduran by 20 cm stent
[2021-01-11] MEDS: Phenazopyridine HCL 100 MG TABLET PO (16:22)
[2021-01-11] MEDS: Acetaminophen 325 MG TABLET 650 MG PO (16:23)
[2021-01-12 05:03] LABS: Glucose, Whole Blood 100 mg/dL (60-115)
[2021-01-14 16:57] LABS: Stone Source RIGHT URETERAL STONE
== END 2021-01-11 16:50 | disposition home or self-care (01) ==
PROVIDERS: PCP Internal Medicine; Visit Provider Urology
PROC: (CPT 52356; principal; 2021-01-11 15:50)
DX: N13.2 Hydronephrosis with renal and ureteral calculous obstruction (principal); Z87.440 Personal history of urinary (tract) infections; D64.9 Anemia, unspecified; G47.30 Sleep apnea, unspecified; I10 Essential (primary) hypertension; E11.9 Type 2 diabetes mellitus without complications; Z79.4 Long term (current) use of insulin; Z79.899 Other long term (current) drug therapy; Z88.8 Allergy status to other drugs, medicaments and biological substances
CPT/HCPCS: 52356; 52352; 82365; 82947; 88300; C1769; C2617; J1100; J1885; J2250; J2405; J2765; J3010; Q9967

== ENCOUNTER → 2021-01-19 10:49 | Outpatient (BNVA) | payer OTHER, SELFPAY | PROVIDERS: PCP Internal Medicine; Visit Provider Urology | DX: N20.0 Calculus of kidney (principal) | CPT/HCPCS: 52310 ==

== ENCOUNTER 2021-02-01 12:53 | Outpatient (REF) | payer OTHER, SELFPAY ==
--- NOTE | ~2021-02-01 | US_ITS ---
EXAMINATION: US RETROPERITONEAL LIMITED (RENAL ONLY) CLINICAL INFORMATION: Calculus of kidney. COMPARISON: Fluoroscopic guidance in OR 01/11/2021. CT abdomen and pelvis 01/04/2021. Limited abdominal ultrasound 09/15/2020. Ultrasound kidneys 07/02/2020. X-ray abdomen KUB 05/14/2020. TECHNIQUE: Real-time imaging of the kidneys. FINDINGS: RIGHT KIDNEY: 11.7 x 4.7 x 6.6 cm (SAG x AP x TRV). The kidney is normal in size, contour, and echogenicity. Renal cortical thickness is normal. No hydronephrosis. There is anechoic cyst in upper midpole measuring 0.8 x 0.7 x 0.7 cm. There is an echogenic stone in upper/mid pole measuring 0.2 x 0.2 x 0.2 cm. LEFT KIDNEY: 11.0 x 5.8 x 5.4 cm (SAG x AP x TRV). The kidney is normal in size, contour, and echogenicity. Renal cortical thickness is normal. No renal calculi or hydronephrosis. There is an echogenic area in the lower pole measuring 1.6 x 1.2 x 1.5 cm. US/US renal BI IMPRESSION: Anechoic cyst and a small nonobstructive echogenic stone upper/mid pole right kidney. AML lower pole left kidney.
== END 2021-02-01 12:54 | disposition home or self-care (01) ==
LOC: HO.HMGCX 12:53
PROVIDERS: PCP Internal Medicine; Visit Provider Urology
DX: N20.0 Calculus of kidney (principal); D35.00 Benign neoplasm of unspecified adrenal gland; E66.9 Obesity, unspecified; E55.9 Vitamin D deficiency, unspecified; Z79.4 Long term (current) use of insulin
CPT/HCPCS: 76775

== ENCOUNTER 2021-02-04 07:17 | Outpatient (REF) | payer OTHER, SELFPAY ==
--- NOTE | ~2021-02-04 | MM_ITS ---
EXAMINATION: MM SCREENING DIGITAL BREAST TOMOSYNTHESIS, BILATERAL CLINICAL INFORMATION: Screening. Asymptomatic. History benign outside left stereotactic biopsy 2013. Family history breast cancer, sister. The lifetime risk of breast cancer based on the Tyrer-Cuzick Model is 17%. COMPARISON: Outside mammography: 12/30/2019, 12/22/2018, 12/09/2017 ([facility]) TECHNIQUE: Digital breast tomosynthesis is performed in both the craniocaudal and mediolateral oblique views along with computer-aided detection (CAD). Synthesized 2D images are generated from the tomosynthesis. FINDINGS: There are scattered areas of fibroglandular density (ACR BI-RADS breast composition Category b). The breast parenchymal pattern is similar to prior studies. There is no developing density or interval mass or architectural abnormality. Small oval nodule with adjacent smaller satellite nodule central left breast on CC view is stable. The axilla and skin contours are unremarkable. There is biopsy clip marker left breast anterior upper outer quadrant. There are increased grouped round calcifications posterior upper outer quadrant left breast. Patient will be recalled for additional imaging to further characterize. MM/MM tomosynthesis screening BI IMPRESSION: 1. Left: Increased grouped round calcifications posterior upper outer quadrant. 2. Right: No mammographic evidence of malignancy. ASSESSMENT: BI-RADS 0: Incomplete - Need Additional Imaging Evaluation RECOMMENDATION: 1. Additional views of the left breast (magnification CC, magnification ML). 2. Targeted ultrasound if warranted after review of the additional views. 3. Radiology department staff will contact the patient for additional imaging. This patient's information was entered into a reminder system with a target due date for their next mammogram.
== END 2021-02-04 07:18 | disposition home or self-care (01) ==
LOC: HO.MAMMO 07:17
PROVIDERS: Visit Provider Internal Medicine
DX: Z12.31 Encounter for screening mammogram for malignant neoplasm of breast (principal)
CPT/HCPCS: 77063; 77067

== ENCOUNTER 2021-02-07 09:59 | Outpatient (REF) | payer OTHER, SELFPAY ==
[2021-02-07 10:15] LABS: Total Volume 24 Hour Urine 1700 mL
[2021-02-07 10:36] LABS: Creatinine, 24Hr Urine 1.3 G/Day (1.0-2.0); Creatinine, mg/dL 76.74
[2021-02-10 17:02] LABS: Cortisol Free, 24 Hr Urine 8.7 mcg/24 h (4.0-50.0); Total Volume, 24 Hr Urine 1700 mL
[2021-02-10 20:42] LABS: CATF, 24 Ur Volume 1700 mL; Catecholamines,Tot. (E+NE) 24U 73 mcg/24 h (26-121); Dopamine, 24 Ur 322 mcg/24 h (52-480); Epinephrine, 24 Ur 4 mcg/24 h (2-24); Norepinephrine, 24 Ur 69 mcg/24 h (15-100)
[2021-02-11 00:42] LABS: Metanephrine, Free 24U 119 mcg/24 h (90-315); Normetanephrine, Free 24U 480 mcg/24 h (122-676); Total Metanephrine, Free 24U 599 mcg/24 h (224-832); Total Volume 24U 1700 mL
== END 2021-02-07 10:00 | disposition home or self-care (01) ==
LOC: HO.LNP 09:59
PROVIDERS: Internal Medicine; Visit Provider Internal Medicine
DX: E27.8 Other specified disorders of adrenal gland (principal); D35.00 Benign neoplasm of unspecified adrenal gland; I10 Essential (primary) hypertension; E66.9 Obesity, unspecified; E78.5 Hyperlipidemia, unspecified
CPT/HCPCS: 82384; 82530; 82570; 83835

== ENCOUNTER 2021-02-08 08:07 | Outpatient (REF) | payer OTHER, SELFPAY ==
[2021-02-08 08:58] LABS: Blood Urea Nitrogen 12 mg/dL (9-16); Phosphorus 3.5 mg/dL (2.7-4.5)
[2021-02-08 08:59] LABS: Alanine Aminotransferase 20 U/L (0-31); Albumin Level 4.6 g/dL (3.5-5.0); Alkaline Phosphatase 87 U/L (39-117); Anion Gap 15 (12-20); Aspartate Amino Transferase 16 U/L (5-31); Bilirubin Total 0.6 mg/dL (0.0-1.0); Blood Urea Nitrogen 12 mg/dL (9-16); Carbon Dioxide 26 mmol/L (22-29); Chloride 105 mmol/L (96-108); Estimated Glomerular Filt Rate > 60; Glucose Random 172 mg/dL (60-115); Magnesium 1.9 mg/dL (1.6-2.6); Phosphorus 3.5 mg/dL (2.7-4.5); Potassium 4.6 mmol/L (3.3-5.1); Sodium 141 mmol/L (135-145)
[2021-02-08 09:20] LABS: Free T4 (Free Thyroxine) 0.98 ng/dL (0.71-1.85); Thyroid Stimulating Hormone 0.42 uIU/mL (0.32-4.0); Vitamin D 25-OH Total 22.5 ng/mL (>30); Vitamin D 25-OH Total 22.6 ng/mL (>30)
[2021-02-08 09:21] LABS: Cortisol Random < 1.0 ug/dL
[2021-02-09 12:36] LABS: Calcium (PTHI) 10.3 mg/dL (8.6-10.4); DHEA Sulfate 11 mcg/dL (8-188); PTHI 54 pg/mL (14-64)
[2021-02-10 15:16] LABS: Adrenocorticotropic Hormone <5 pg/mL (6-50)
[2021-02-12 11:52] LABS: Renin 1.25 ng/mL/h (0.25-5.82)
[2021-02-12 13:07] LABS: Metanephrine, Free 34 pg/mL (<=57); Normetanephrines, Free 81 pg/mL (<=148); Total Metanephrine, Free 115 pg/mL (<=205)
[2021-02-16 13:57] LABS: Dexamethasone 296 ng/dL
[2021-02-19 10:51] LABS: Catecholamine Frac, Total 613 pg/mL
== END 2021-02-08 08:08 | disposition home or self-care (01) ==
LOC: HO.LAB 08:07
PROVIDERS: Urology; PCP Internal Medicine; Visit Provider Internal Medicine
DX: D35.00 Benign neoplasm of unspecified adrenal gland (principal); E27.8 Other specified disorders of adrenal gland; N20.0 Calculus of kidney; E55.9 Vitamin D deficiency, unspecified; R39.15 Urgency of urination; Z87.442 Personal history of urinary calculi
CPT/HCPCS: 36415; 80053; 80299; 82024; 82088; 82306; 82310; 82384; 82533; 82627; 83735; 83835; 83970; 84100; 84244; 84439; 84443; 84520

== ENCOUNTER → 2021-02-16 09:27 | Outpatient (BNVA) | payer OTHER, SELFPAY | PROVIDERS: PCP Internal Medicine; Visit Provider Dietitian, Registered | DX: E11.9 Type 2 diabetes mellitus without complications (principal); E66.9 Obesity, unspecified; E55.9 Vitamin D deficiency, unspecified | CPT/HCPCS: 97802 ==

== ENCOUNTER 2021-02-18 07:46 | Outpatient (REF) | payer OTHER, SELFPAY ==
--- NOTE | ~2021-02-18 | CT_ITS ---
EXAMINATION: CT ABDOMEN WITHOUT AND WITH CONTRAST CLINICAL INFORMATION: Benign neoplasm of adrenal gland COMPARISON: Previous CT of the abdomen and pelvis December 2020 and renal ultrasound January 2000 TECHNIQUE: Contiguous axial thin section helical images of the abdomen were performed before and after the administration of oral contrast and 85 mL of Omnipaque 350 intravenous contrast. The data set was reformatted in the coronal and sagittal planes and reviewed on an independent workstation. This CT examination was performed using dose optimization techniques as appropriate, variously including the following: *Automated exposure control *Adjustment of mA and/or kV according to patient size (this includes techniques or standardized protocols for targeted exams where dose is matched to indication/reason for exam; i.e. extremities or head) *Use of iterative reconstruction technique DLP: 94 mGy-cm FINDINGS: LUNG BASES: There are several small right lower lobe nodules and a single left lower lobe pulmonary nodule. These are similar to December 2020 exam. Largest pulmonary nodule measures 5 mm in the right lower lobe for example axial image 14 series 9. LIVER, GALLBLADDER, AND BILIARY TREE: The liver is slightly low in attenuation suggestive of fatty infiltration. The liver and gallbladder are otherwise normal. PANCREAS: Normal SPLEEN: Normal ADRENAL GLANDS AND KIDNEYS: There is a 1 x 1.5 cm left adrenal nodule. Hounsfield units precontrast measure 3. Hounsfield units immediately post contrast measure 61. Delayed Hounsfield units 10 minutes following contrast administration measured 13. Absolute and relative washout measures 83%. Suggestive of a benign adenoma. The right adrenal gland is normal-appearing. There is a 1 cm cyst in the lower pole of the left kidney. No imaging follow-up needed. The kidneys are otherwise normal. Previously identified right hydronephrosis has resolved BOWEL LOOPS: Normal. There is a small umbilical hernia containing fat. There is mild infiltration of the fat just deep to the hernia that is new from December 2018. LYMPH NODES: Normal. VASCULAR: Unremarkable. BONES: Normal CT/CT abdomen wo/w con IMPRESSION: 1 x 1.5 cm left adrenal nodule. CT washout is suggestive of a benign adrenal adenoma. 1 cm left renal cyst. Mild fatty infiltration of the liver. Umbilical hernia containing fat. Fleischner guidelines were followed.
[2021-02-18] MEDS: iohexoL 350 MG/ML 100 ML INFUS..BTL IV (09:03)
== END 2021-02-18 07:47 | disposition home or self-care (01) ==
LOC: HO.CT 07:46
PROVIDERS: PCP Internal Medicine; Visit Provider Internal Medicine
DX: D35.00 Benign neoplasm of unspecified adrenal gland (principal)
CPT/HCPCS: 74170; Q9967

== ENCOUNTER 2021-02-24 07:50 | Outpatient (REF) | payer OTHER, SELFPAY ==
--- NOTE | ~2021-02-24 | MM_ITS ---
EXAMINATION: MM DIAGNOSTIC DIGITAL MAMMOGRAPHY, LEFT TARGETED LEFT BREAST ULTRASOUND CLINICAL INFORMATION: Left breast calcifications. COMPARISON: Mammography:02/04/2021 TECHNIQUE: Digital mammography is performed in the following views: Spot magnification views in craniocaudal and 90 degree mediolateral views. TARGETED LEFT BREAST ULTRASOUND: FINDINGS: There are scattered areas of fibroglandular density (ACR BI-RADS breast composition Category b). Grouping of calcifications within the deep upper outer aspect of the left breast appear to be present to some degree on previous studies. No linear branching forms or layering of calcifications on 90 degree mediolateral views performed. Targeted left breast ultrasound did not demonstrate any abnormal cystic or solid mass lesions or region of abnormal distal sound shadowing. Results are discussed with the patient at time of visit. MM/MM added views LT IMPRESSION: Probable benign calcifications without associated mass appreciated with ultrasound. Recommend 6 month follow-up left breast mammography with magnification views to ensure stability. ASSESSMENT: BI-RADS 3: Probably Benign RECOMMENDATION: Diagnostic mammography in 6 months. This patient's information was entered into a reminder system with a target due date for their next mammogram.
--- NOTE | ~2021-02-24 | US_ITS ---
EXAMINATION: US DIAGNOSTIC ULTRASOUND BREAST, LEFT CLINICAL INFORMATION: Calcifications with possible associated mass upper outer aspect of the left breast.. COMPARISON: Mammography of same day as well as studies dating back to December 03, 2016. TECHNIQUE: Ultrasound of the breast is performed with real-time townsend scale imaging and color Doppler. FINDINGS: There is no focal suspicious finding. There is no solid mass, architectural abnormality, duct ectasia, or edema in the soft tissue planes. Results are discussed with the patient at time of visit. US/US breast LT limited IMPRESSION: No suspicious ultrasound abnormality in region of left breast calcifications. ASSESSMENT: BI-RADS 3: Probably Benign RECOMMENDATION: Diagnostic mammography in 6 months due to mammographic findings.. This patient's information was entered into a reminder system with a target due date for their next mammogram.
== END 2021-02-24 07:51 | disposition home or self-care (01) ==
LOC: HO.MAMMO 07:50
PROVIDERS: Visit Provider Internal Medicine
DX: R92.1 Mammographic calcification found on diagnostic imaging of breast (principal)
CPT/HCPCS: 76642; 77065

== ENCOUNTER → 2021-02-25 09:11 | Outpatient (BNVA) | payer OTHER, SELFPAY | PROVIDERS: PCP Internal Medicine; Visit Provider Registered Nurse Diabetes Educator ==

== ENCOUNTER → 2021-03-11 10:53 | Outpatient (BNVA) | payer OTHER, SELFPAY | PROVIDERS: PCP Internal Medicine; Visit Provider Urology ==

== ENCOUNTER → 2021-03-15 07:33 | Outpatient (BNVA) | payer OTHER, SELFPAY | PROVIDERS: PCP Internal Medicine; Visit Provider Internal Medicine ==

== ENCOUNTER → 2021-03-30 11:56 | Outpatient (BNVA) | payer OTHER, SELFPAY | PROVIDERS: PCP Internal Medicine; Visit Provider Dietitian, Registered | DX: E11.9 Type 2 diabetes mellitus without complications (principal); E55.9 Vitamin D deficiency, unspecified; E66.9 Obesity, unspecified | CPT/HCPCS: 97803 ==

== ENCOUNTER 2021-04-02 10:52 | Day surgery (SDC) | payer OTHER, SELFPAY ==
[2021-04-02 11:09] VITALS: BMI 35.4
[2021-04-02 11:24] VITALS: BP 179/93; PULSE 77; RESP 16; TEMP 36.3; O2SAT 94
--- NOTE | 2021-04-02 11:24 | HO.ANESPROP2 ---
HPI - Anesthesia Eval Consult details Narrative: 55 F for EGD and colonoscopy [facility] Active Problems Active Problems: All Active Problems (Updated 03/26/21 @ 13:41 by Tahmina Griffin RN) Obesity (Acute) Cervical paraspinous muscle spasm (Acute) Annual physical exam (Acute) Epigastric pain (Acute) Nausea (Acute) Acid reflux (Acute) Chronic cough (Acute) Wheeze (Acute) Diarrhea (Acute) Kidney stone on right side (Acute) Adrenal mass (Acute) Nephrolithiasis (Acute) Hypercalcemia (Acute) T2DM (type 2 diabetes mellitus) (Acute) Obesity (Acute) Vitamin D deficiency (Acute) Adrenal adenoma (Acute) RUQ abdominal pain (Acute) Fatigue (Acute) Anemia (Acute) Nephrolithiasis (Acute) HTN (hypertension) (Acute) Osteoarthritis of knees, bilateral (Acute) Mammogram normal (Acute) Normal Pap smear (Acute) Hyperlipidemia (Acute) IDDM (insulin dependent diabetes mellitus) (Acute) Frequent urinary tract infections (Acute) Past Medical History Medical History (Updated 03/26/21 @ 13:41 by Tahmina Griffin RN) Adrenal adenoma Anemia Anxiety Depression Fatigue Frequent urinary tract infections GERD (gastroesophageal reflux disease) HTN (hypertension) Hypercalcemia Hyperlipidemia IDDM (insulin dependent diabetes mellitus) Mammogram normal Nephrolithiasis Normal Pap smear Obesity Osteoarthritis of knees, bilateral RUQ abdominal pain Sleep apnea T2DM (type 2 diabetes mellitus) Vitamin D deficiency Functional capacity: independent ambulation Family History Family History Father No problems noted. Mother Renal failure Brother No problems noted. Brother Sarcoidosis Sister No problems noted. Daughter Asperger's disorder ADHD Family history of problems with anesthesia: No Surgical History Surgical History (Updated 03/26/21 @ 13:44 by Tahmina Griffin RN) H/O colonoscopy History of carpal tunnel surgery History of cystoscopy History of endometrial ablation Hx of lithotripsy History of Problems with Anesthesia: No Social History Social History Housing: House Alcohol intake: current Alcohol intake frequency: holidays/special occasions only Patient Tobacco Use Status: Former Tobacco user Tobacco use type: Cigarette e-Cigarette/Vaping Use: Never Used Second Hand Smoke Exposure: No Use of substances other than those prescribed or required for medical reasons: No Are you DNR?: No Advance Directives: No Advance Directives Information Provided: Yes Recently lost weight without trying: No Nutrition Risks: No Nutritional Risk service: No Current occupational status: employed Current occupation: RN Meds Allergies Allergy/AdvReac Type Severity Reaction Status Date / Time codeine [CODEINE] Allergy Severe Hives Verified 03/26/21 13:45 liraglutide [Victoza] Allergy Severe vomiting Verified 03/26/21 13:45 metronidazole [From FLAGYL] Allergy Severe Anaphylaxis Verified 03/26/21 13:45 sulfamethoxazole Allergy Severe Hives Verified 03/26/21 13:45 [From Bactrim] trimethoprim [From Bactrim] Allergy Severe Hives Verified 03/26/21 13:45 azithromycin [From Zithromax] Allergy Intermediate Hives Verified 03/26/21 13:45 atorvastatin [Lipitor] Allergy Mild body aches Verified 03/26/21 13:45 external yeast cream Allergy Intermediate Itching Uncoded 03/26/21 13:45 Home Medications Medication Instructions Recorded Confirmed Last Taken Type alprazolam 0.25 mg tablet 0.25 mg PO DAILY PRN 02/25/20 03/15/21 Unknown History duloxetine 60 mg capsule,delayed 120 mg PO DAILY cap 02/25/20 03/15/21 Unknown History release flu vac qs 2019(4 yr up)CD(PF) ml IM 02/25/20 03/15/21 Unknown History oxcarbazepine 300 mg tablet 300 mg PO BID 02/25/20 03/15/21 Unknown History omega-3 fatty acids 1,000 mg 1,000 mg PO DAILY 08/26/20 03/15/21 Unknown History capsule (Fish Oil Concentrate) valacyclovir 500 mg tablet 500 mg PO DAILY 08/26/20 03/15/21 Unknown History budesonide-formoterol HFA 160 1 puff PO Q12H 01/19/21 03/15/21 04/02/21 06:00 History mcg-4.5 mcg/actuation aerosol inhaler (Symbicort) clindamycin HCl 300 mg capsule 300 mg PO Q6H 01/19/21 03/15/21 Unknown History insulin lispro 100 unit/mL See Rx Instructions SUBCUT TID ml 02/01/21 03/15/21 Unknown History subcutaneous pen (Humalog KwikPen (U-100) Insulin) empagliflozin 25 mg tablet 25 mg PO DAILY 03/15/21 03/15/21 Unknown History (Jardiance) metformin 500 mg tablet,extended 1,000 mg PO BID 03/15/21 03/15/21 Unknown History release 24 hr Exam Exam Date and Time: April 02, 2021 1124 Height,Weight and Vital Signs: Height 5 ft 3 in Weight 90.718 kg Airway Mallampati Class: III TM Dist: >3cm Neck ROM: Full Loose/Missing/Broken Teeth: Yes (Chipped ) Heart: rrr Lungs: bl breath sounds Assessment and Plan Assessment Anesthesia Assessment: Anesthesia Plan Discussed Final Anesthetic Review Family History of Problems with Anesthesia: No History of Problems with Anesthesia: No NPO: Yes ASA Class: III Final Preanesthetic Review: Meds/Albertogs Chart Reviewed Patient Risk: Intermediate Procedure Risk: Intermediate Anesthetic Plan Anesthetic Plan: MAC: Disposition: Standard PACU
[2021-04-02] MEDS: Lactated Ringers 1,000 ML 80 ML IVCONT (11:31)
[2021-04-02 11:34] LABS: Glucose, Whole Blood 155 mg/dL (60-115)
--- NOTE | 2021-04-02 11:44 | PC.NURSE ---
receiving resp treatment
--- NOTE | 2021-04-02 11:50 | MHC.SHP ---
Pre-Procedural Eval Section A Date of Service: 04/02/21 The patient is an INPATIENT: No Changes since office visit: No Cold of Flu in the past 2 weeks, No New Medical Problems, No Changes in Medication and No Patient answered all questions The History & Physical has been completed within 30 days and I have reviewed it.: Yes Section B Chief Complaint: diarrhea,reflux disease Allergies: Allergies Allergy/AdvReac Type Severity Reaction Status Date / Time codeine [CODEINE] Allergy Severe Hives Verified 03/26/21 13:45 liraglutide [Victoza] Allergy Severe vomiting Verified 03/26/21 13:45 metronidazole [From FLAGYL] Allergy Severe Anaphylaxis Verified 03/26/21 13:45 sulfamethoxazole Allergy Severe Hives Verified 03/26/21 13:45 [From Bactrim] trimethoprim [From Bactrim] Allergy Severe Hives Verified 03/26/21 13:45 azithromycin [From Zithromax] Allergy Intermediate Hives Verified 03/26/21 13:45 atorvastatin [Lipitor] Allergy Mild body aches Verified 03/26/21 13:45 external yeast cream Allergy Intermediate Itching Uncoded 03/26/21 13:45 Plan I have reviewed the history and physical and performed a pertinent physical examination on my patient. No changes have occurred unless specified.
[2021-04-02 12:41] VITALS: BP 124/69; PULSE 83; RESP 18; TEMP 36.6; O2SAT 96
--- NOTE | 2021-04-02 12:42 | PM.OP ---
Brief Operative Note Date of Service: 04/02/21 Pre-op diagnosis: gerd diarrhea Post-op diagnosis: same (gastric polyps, gastritis, colon polyps) Procedure: EGD, colon Surgeon: Carl Hale Anesthesia: MAC Was an Micromatic Hone Operator used for this Procedure?: No Estimated blood loss (mL): 5 Pathology: other (see path req) Condition: stable Disposition: PACU
[2021-04-02 12:56] VITALS: BP 140/70; PULSE 87; RESP 18; TEMP 36.6; O2SAT 97
--- NOTE | 2021-04-02 23:54 | OP_ITS ---
SURGEON: Carl Hale MD INDICATIONS: 1. Gastroesophageal reflux disease. 2. Diarrhea. 3. Globus sensation. PROCEDURE: Upper endoscopy with biopsy, colonoscopy to the terminal ileum with biopsy and snare polypectomy. MEDICATIONS: Monitored anesthesia care. DESCRIPTION OF PROCEDURE: The history and physical performed. The risks and benefits of the procedure were explained to the patient. Informed consent was obtained. The patient was placed in the left lateral decubitus position. The Olympus video gastroscope was introduced into the esophagus, stomach, and duodenum. Examination was performed. The scope was removed. She was repositioned for colonoscopy. A digital rectal exam was performed and was found to be normal. The Olympus pediatric video colonoscope was introduced into the rectum and advanced to the cecum without difficulty. The cecum was identified by transillumination, palpation, and identification of ileocecal valve. Examination was performed. The scope was removed. She tolerated both procedures well and was taken to recovery in stable condition. FINDINGS: UPPER ENDOSCOPY: Esophagus: The esophagus had a transient ring-like appearance to it in the body of the esophagus suspicious for possible underlying eosinophilic esophagitis. Biopsies were obtained at 25 cm to rule this out. There was no esophagitis. There was a slight nonobstructive Schatzki ring and a small sliding hiatal hernia. Biopsies were obtained from the EG junction. Stomach: The stomach showed gastritis with focal areas of erythema mainly in the body. Biopsies were obtained from the antrum. There were multiple benign-appearing polyps in the body and fundus consistent with fundic gland polyps. Biopsies were obtained from 2 of these. All polyps measured less than 10 mm. Duodenum: The bulb and second portion were normal. Biopsies were obtained to evaluate for celiac disease. COLONOSCOPY: The terminal ileum was normal. This was biopsied. The visualized colonic mucosa was normal. Random sigmoid biopsies were obtained to evaluate for microscopic colitis. There was very minimal diverticulosis of the sigmoid. Two polyps were identified, both measuring less than 10 mm, at 45 cm. These were removed with a snare and recovered via suction. The quality of the prep was excellent. Retroflexed examination showed some small internal hemorrhoids. IMPRESSION: 1. Gastritis. 2. Gastric polyps. 3. Colon polyps. RECOMMENDATION: Follow up biopsy results. MD ROSE Doran/FAIZAN / [phone] LINDA
== END 2021-04-02 13:30 | disposition home or self-care (01) ==
PROVIDERS: PCP Internal Medicine; Visit Provider Internal Medicine Gastroenterology
PROC: (CPT 45385; principal; 2021-04-02 12:10)
DX: R19.7 Diarrhea, unspecified (principal); D12.5 Benign neoplasm of sigmoid colon; K21.9 Gastro-esophageal reflux disease without esophagitis; K22.2 Esophageal obstruction; K29.50 Unspecified chronic gastritis without bleeding; K31.7 Polyp of stomach and duodenum; R19.8 Other specified symptoms and signs involving the digestive system and abdomen; K44.9 Diaphragmatic hernia without obstruction or gangrene; I10 Essential (primary) hypertension; J45.909 Unspecified asthma, uncomplicated; E11.9 Type 2 diabetes mellitus without complications; Z79.4 Long term (current) use of insulin; Z79.51 Long term (current) use of inhaled steroids; Z79.899 Other long term (current) drug therapy; Z88.1 Allergy status to other antibiotic agents; Z88.8 Allergy status to other drugs, medicaments and biological substances; Z87.442 Personal history of urinary calculi; Z87.891 Personal history of nicotine dependence
CPT/HCPCS: 45385; 45380; 43239; 82947; 88305; 88342; J2250

== ENCOUNTER → 2021-04-13 15:13 | Outpatient (BNVA) | payer OTHER, SELFPAY | PROVIDERS: PCP Internal Medicine; Visit Provider Registered Nurse Diabetes Educator ==

== ENCOUNTER 2021-04-27 14:48 | Outpatient (REF) | payer OTHER, SELFPAY ==
[2021-04-29 01:57] LABS: Follicle Stimulating Hormone 41.9 mIU/mL
== END 2021-04-27 14:49 | disposition home or self-care (01) ==
LOC: HO.LAB 14:48
PROVIDERS: PCP Internal Medicine; Visit Provider Nurse Practitioner Adult Health
DX: N91.2 Amenorrhea, unspecified (principal)
CPT/HCPCS: 36415; 83001

== ENCOUNTER 2021-05-06 13:18 | Outpatient (REF) | payer OTHER, SELFPAY ==
--- NOTE | ~2021-05-06 | US_ITS ---
EXAMINATION: US PELVIS, TRANSABDOMINAL AND TRANSVAGINAL CLINICAL INFORMATION: Pelvic pain COMPARISON: CT dated 01/04/2021 TECHNIQUE: Transabdominal transvaginal. FINDINGS: Extremely limited exam due to body habitus. The uterus is 4.4 x 2.5 x 2.8 cm. Retroverted. The endometrial thickness is only partially visualized. Measured at 4 to 5 mm by the wharf tally clerk. The right ovary is 2.2 x 2.2 x 2.1 cm. Volume 5 mL. Ovarian vascularity is demonstrated. The left ovary is 2.3 x 2.1 x 1.7 cm. Volume 4.4 mL. Small 9 mm cyst demonstrated on the left ovary. Left ovarian vascularity is demonstrated No free fluid or obvious adnexal mass. US/US pelvic and transvaginal IMPRESSION: This exam is significantly limited from patient body habitus. Small simple-appearing cyst seen on the left ovary. No free fluid or obvious adnexal mass.
== END 2021-05-06 13:19 | disposition home or self-care (01) ==
LOC: HO.US 13:18
PROVIDERS: PCP Internal Medicine; Visit Provider Nurse Practitioner Adult Health
DX: R10.2 Pelvic and perineal pain (principal)
CPT/HCPCS: 76830; 76856

== ENCOUNTER → 2021-05-13 10:30 | Outpatient (BNVA) | payer OTHER, SELFPAY | PROVIDERS: Visit Provider Dietitian, Registered | DX: E11.9 Type 2 diabetes mellitus without complications (principal); E66.9 Obesity, unspecified; E78.5 Hyperlipidemia, unspecified; E55.9 Vitamin D deficiency, unspecified; F41.8 Other specified anxiety disorders; Z87.891 Personal history of nicotine dependence; Z88.6 Allergy status to analgesic agent; Z88.2 Allergy status to sulfonamides; Z88.8 Allergy status to other drugs, medicaments and biological substances | CPT/HCPCS: 97803 ==

== ENCOUNTER → 2021-05-18 08:54 | Outpatient (BNVA) | payer OTHER, SELFPAY | PROVIDERS: PCP Internal Medicine; Visit Provider Registered Nurse Diabetes Educator ==

== ENCOUNTER 2021-05-24 10:13 | Emergency (ER) | payer OTHER, SELFPAY ==
--- NOTE | ~2021-05-24 | CT_ITS ---
EXAMINATION: CT HEAD WITHOUT CONTRAST CLINICAL INFORMATION: Dizziness and nausea. COMPARISON: None TECHNIQUE: Contiguous axial imaging was performed from the skull base to vertex without intravenous administration of contrast. This CT examination was performed using dose optimization techniques as appropriate, variously including the following: *Automated exposure control *Adjustment of mA and/or kV according to patient size (this includes techniques or standardized protocols for targeted exams where dose is matched to indication/reason for exam; i.e. extremities or head) *Use of iterative reconstruction technique DLP: 702 mGy-cm FINDINGS: There is no evidence of acute intracranial hemorrhage or territorial infarction. No abnormal mass effect or midline shift is seen. Harper to white matter differentiation is well preserved. No extra-axial fluid collections are identified. The ventricles are normal in size. There is no abnormal attenuation within the brain parenchyma. The osseous structures and soft tissues are normal. The mastoid air cells and visualized portions of the paranasal sinuses are well aerated. CT/CT head/brain wo con IMPRESSION: No acute intracranial pathology.
[2021-05-24 10:22] VITALS: BP 157/79; PULSE 59; RESP 19; TEMP 36.6; O2SAT 98; BMI 35.2
[2021-05-24 10:44] LABS: Basophils Absolute Auto 0.1 X10*3/uL (0.0-0.2); Basophils Percent Auto 0.6 % (0-2); Eosinophils Absolute Auto 2.5 X10*3/uL (0.0-0.4); Eosinophils Percent Auto 19.9 % (0-4); Hematocrit 41.6 % (37.0-47.0); Hemoglobin 14.4 g/dl (12.0-16.0); Imm Gran Pct Auto 0.8 % (0.0-0.4); Lymphocytes Absolute Auto 3.5 X10*3/uL (1.2-4.9); Lymphocytes Percent Auto 27.7 % (20-40); MANUAL DIFF FLAG SCAN; Mean Corpuscular HGB Conc 34.6 g/dl (31.0-35.0); Mean Corpuscular Hemoglobin 31.7 pg (27.0-33.0); Mean Corpuscular Volume 91.6 fL (80.0-98.0); Mean Platelet Volume 9.1 fL (9.4-12.3); Monocytes Absolute Auto 0.9 X10*3/uL (0.1-1.2); Monocytes Percent Auto 7.1 % (2-11); Neutrophils Absolute Auto 5.5 x10*3/uL (2.0-8.3); Neutrophils Percent Auto 43.9 % (45-73); Platelet Count 347 X10*3/uL (160-400); Red Blood Count 4.54 X10*6/uL (4.20-5.50); Red Cell Distribution Width 12.1 % (11.0-16.0); SCAN SMEAR FLAG 1; White Blood Count 12.5 X10*3/uL (4.8-10.8)
[2021-05-24 10:50] LABS: Appearance Urine HAZY; Color Urine YELLOW; Glucose Urine UA NEG (NEG); Leukocyte Esterase Urine 2+ (NEG); Nitrite Urine NEG (NEG); UACC Culture Trigger YES; Urine Blood NEG (NEG); Urine Ketones NEG (NEG); Urine Protein NEG (NEG-TRACE)
[2021-05-24 10:56] LABS: Anion Gap 11 (12-20); Blood Urea Nitrogen 11 mg/dL (9-16); Calcium 10.9 mg/dL (8.4-10.2); Carbon Dioxide 30 mmol/L (22-29); Chloride 103 mmol/L (96-108); Estimated Glomerular Filt Rate > 60; Glucose Random 202 mg/dL (60-115); Potassium 4.3 mmol/L (3.3-5.1); Sodium 140 mmol/L (135-145)
[2021-05-24 11:01] LABS: Bacteria Urine TRACE /LPF; Mucus Urine 1+ /LPF; RBC Urine 0 /HPF (0); Squamous Epithelial Cell Urine 2+ /LPF
[2021-05-24 11:02] LABS: Amorphous Sediment Urine 2+ /LPF
[2021-05-24 11:03] LABS: SLIDE REVIEW VERIFIED
--- NOTE | 2021-05-24 14:06 | PC.NURSE ---
pt walked to triage w steady gait, alert, speech clear, needed to eat something or she was going to leave, crackers and ines elicia provided
[2021-05-24 15:45] VITALS: BP 160/74; PULSE 67; RESP 18; TEMP 36; O2SAT 97
--- NOTE | 2021-05-24 15:54 | ED_ITS ---
HPI - Dizziness General Chief Complaint: Dizziness Stated Complaint: vertigo/nausea Time Seen by Provider: 05/24/21 15:42 Source: patient Mode of arrival: ambulatory Limitations: no limitations History of Present Illness HPI Narrative: Patient is a 55-year-old female, with a past at Medical history of adrenal adenoma, anemia, anxiety, depression, GERD, hypertension, hyper calcemia, hyperlipidemia, insulin dependent diabetes, nephrolithiasis, last your arthritis, obesity, sleep apnea. Presenting to the emergency department for evaluation of dizziness, she was evaluated at an urgent care prior to her arrival she states that she had an EKG performed in the were concerned about bradycardia therefore she was referred to the emergency department. Patient has is that she suspects her bradycardia secondary to multiple antihypertensive agents including metoprolol. The dizziness onset was sudden she awoke with it 2 mornings ago. Episodes are intermittent. Does not have a history of similar occurring in the past. Described as feeling as though the room is spinning. Dizziness is made worse by position change and movement of the head. It improves with rest. Denies fevers, chills, falls, head trauma, pre-syncope, syncope, headache, vision changes, hearing changes, ringing of the ears, nausea, vomiting, palpitations, shortness of breath, exercise intolerance, or pedal edema. Related Data Home Medications Medication Instructions Recorded Confirmed alprazolam 0.25 mg tablet 0.25 mg PO DAILY PRN 02/25/20 03/15/21 duloxetine 60 mg capsule,delayed 120 mg PO DAILY cap 02/25/20 03/15/21 release flu vac qs 2019(4 yr up)CD(PF) ml IM 02/25/20 03/15/21 oxcarbazepine 300 mg tablet 300 mg PO BID 02/25/20 03/15/21 omega-3 fatty acids 1,000 mg 1,000 mg PO DAILY 08/26/20 03/15/21 capsule (Fish Oil Concentrate) valacyclovir 500 mg tablet 500 mg PO DAILY 08/26/20 03/15/21 budesonide-formoterol HFA 160 1 puff PO Q12H 01/19/21 03/15/21 mcg-4.5 mcg/actuation aerosol inhaler (Symbicort) clindamycin HCl 300 mg capsule 300 mg PO Q6H 01/19/21 03/15/21 empagliflozin 25 mg tablet 25 mg PO DAILY 03/15/21 03/15/21 (Jardiance) Previous Rx's Medication Instructions Recorded estradiol 10 mcg vaginal tablet 10 mcg VAGINAL 2XW #90 tab 02/25/20 albuterol sulfate 90 mcg/actuation 1 puff INHALATION Q4H #8.5 g 08/26/20 aerosol inhaler amlodipine 2.5 mg tablet 2.5 mg PO DAILY #90 tab 10/05/20 rosuvastatin 20 mg tablet 20 mg PO DAILY #90 tab 10/29/20 metoprolol tartrate 50 mg tablet 50 mg PO BID #180 tab 11/17/20 blood-glucose sensor (Dexcom G6 1 ea TOPICAL DIRECTED #3 ea 12/14/20 Sensor) pen needle, diabetic 32 gauge x #100 ea 12/23/20 (BD Ultra-Fine Ellen Pen Needle) blood-glucose transmitter (Dexcom #1 ea 01/01/21 G6 Transmitter) sulfamethoxazole 400 1 tab PO DAILY #10 tab 01/11/21 mg-trimethoprim 80 mg tablet (Bactrim) insulin degludec 200 unit/mL (3 70 unit (0.35 mL) SUBCUT BID #27 ml 01/28/21 mL) subcutaneous pen (Tresiba FlexTouch U-200 insulin) empagliflozin 25 mg tablet 25 mg PO DAILY #30 tab 02/26/21 (Jardiance) pyridoxine (vitamin B6) 100 mg 100 mg PO DAILY 90 Days #90 tab 03/11/21 tablet cholecalciferol (vitamin D3) 25 25 mcg PO DAILY 30 Days #30 cap 03/15/21 mcg (1,000 unit) capsule insulin glargine U-300 conc 300 70 unit (0.2333 mL) SUBCUT BID #12 03/17/21 unit/mL (3 mL) subcutaneous pen ml (Toujeo Max U-300 SoloStar) losartan 50 mg tablet 50 mg PO BID #180 tab 04/12/21 omeprazole 40 mg capsule,delayed 40 mg PO DAILY #90 cap 04/16/21 release insulin lispro 100 unit/mL See Rx Instructions SUBCUT TID #30 04/21/21 subcutaneous pen (Humalog KwikPen ml (U-100) Insulin) meclizine 25 mg tablet 25 mg PO BID PRN #14 tab 03/07/22 ondansetron 4 mg disintegrating 4 mg PO Q8H PRN 3 Days tab 05/24/21 tablet Allergies Allergy/AdvReac Type Severity Reaction Status Date / Time codeine [CODEINE] Allergy Severe Hives Verified 05/24/21 09:12 liraglutide [Victoza] Allergy Severe vomiting Verified 05/24/21 09:12 metronidazole [From FLAGYL] Allergy Severe Anaphylaxis Verified 05/24/21 09:12 sulfamethoxazole Allergy Severe Hives Verified 05/24/21 09:12 [From Bactrim] trimethoprim [From Bactrim] Allergy Severe Hives Verified 05/24/21 09:12 azithromycin [From Zithromax] Allergy Intermediate Hives Verified 05/24/21 09:12 atorvastatin [Lipitor] Allergy Mild body aches Verified 05/24/21 09:12 external yeast cream Allergy Intermediate Itching Uncoded 05/24/21 09:12 Review of Systems Review of Systems: Constitutional : No Fever, No Chills, No Fatigue ENT/Mouth : No sore throat, No Rhinorrhea Eyes: No Eye Pain, No Swelling, No Redness Cardiovascular : No Chest Pain, No SOB, No Dyspnea on Exertion Respiratory : No Cough, No Sputum Gastrointestinal : No Nausea, No Vomiting, No Diarrhea, No abdominal Pain Genitourinary : No Dysuria, No Urinary Frequency, No Hematuria, Musculoskeletal : No joint pain, No Myalgias, No Joint Swelling Skin : No Skin Lesions, No rash Neuro : Positive dizziness. No Weakness, No Numbness, No Headache Psych : No Anxiety/Panic, No Depression Heme/Lymph: No Bruising, No Bleeding, No Lymphadenopathy Endocrine : No Polyuria, No Polydipsia Yes all other systems are reviewed and are negative [facility] Past Medical History Attestation statement: The following information was validated with the patient. Source: old records reviewed Medical History Adrenal adenoma Anemia Anxiety Depression Fatigue Frequent urinary tract infections GERD (gastroesophageal reflux disease) HTN (hypertension) Hypercalcemia Hyperlipidemia IDDM (insulin dependent diabetes mellitus) Mammogram normal Nephrolithiasis Normal Pap smear Obesity Osteoarthritis of knees, bilateral RUQ abdominal pain Sleep apnea T2DM (type 2 diabetes mellitus) Vitamin D deficiency Surgical History H/O colonoscopy History of carpal tunnel surgery History of cystoscopy History of endometrial ablation Hx of lithotripsy Family History Family History Father No problems noted. Mother Renal failure Brother No problems noted. Brother Sarcoidosis Sister No problems noted. Daughter Asperger's disorder ADHD Social History Social History Housing: House Alcohol intake: current Alcohol intake frequency: holidays/special occasions only Patient Tobacco Use Status: Former Tobacco user Tobacco use type: Cigarette e-Cigarette/Vaping Use: Never Used Second Hand Smoke Exposure: No Advance Directives: Yes Advance Directives Information Provided: No Advance Directives on File: No service: No Current occupational status: employed Current occupation: RN Physical Exam Vital Signs: Vital Signs: Last Vital Signs Temp 96.8 F 05/24/21 15:45 Pulse 67 05/24/21 16:45 Resp 18 05/24/21 15:45 BP 158/79 H 05/24/21 16:45 Pulse Ox 97 05/24/21 15:45 BMI result Body Mass Index 35.2 Vital signs have been reviewed and appeared to be correct. Blood pressure is elevated 160/70.? Heart rate normal.? Respiration rate normal. Temperature normal.? Oxygen saturation normal. Appearance: Alert.?Oriented to person, place and time. No acute distress.?Normal affect. Head: Normocephalic, atraumatic. No head, sinus or TMJ tenderness.? Eyes: Sclera white, conjunctiva pink. PERRL, 3 mm bilaterally. Visual reddy full to confrontation, EOMi.?No Nystagmus. Ears: Bilateral ear canals clear, TM visible with good cone of light.? Nose: Nasal mucosa pink and moist with midline septum, nares patent bilaterally.? Mouth/ Throat: Oral mucosa pink and moist without lesions. Pharynx normal Neck: Normal inspection.? Neck supple.?? CVS: Heart sounds normal. Normal heart rate and rhythm.? Pulses normal.?? Respiratory: No respiratory distress.? Lung sounds clear to auscultation bilaterally?? Abdomen: Soft and non-tender. Normoactive bowel sounds. No pulsatile mass.?? Skin: Skin warm and dry.? Normal skin color.? Normal skin turgor.?? Extremities: No lower extremity edema. Neuro: No focal neurological deficit observed, CN II-XII intact, normal sensory observed, normal coordination observed. Level of consciousness: Appropriate for age. Motor strength: right upper extremity 5 /5, left upper extremity 5 /5, right lower extremity 5 /5, left lower extremity 5 /5.?Speech: Normal, Gait: Normal, Wtsvdg-gi-[id number] test: Normal, Yerp-rq-yxta test: Normal. Ambulates with normal steady gait. Course Course Course Narrative: Patient is a 55-year-old female being evaluated for dizziness. Neuro exam with no abnormal findings, no focal neuro deficits, no spontaneous or gaze evoked nystagmus, no ataxia, no diplopia, dysarthria, dysphagia, dysphonia, dysmetria. Will obtain CBC to evaluate for leukocytosis/ anemia, CMP to evaluate for abnormal electrolytes /abnormal renal function/ abnormal hepatic function, EKG and troponin to evaluate for arrhythmia/ ischemia/ACS. Will assess for orthostatic hypotension. Given the sudden onset of dizziness, severe intensity, and episodic nature, most consistent with BPPV as it is triggered with certain head movements eliciting dizziness. Patient to receive a dose of meclizine. Reevaluation(s) Reevaluation #1: Labs are overall unremarkable, with calcium 10.9 consistent with prior levels. EKG reveals sinus bradycardia, Troponin <3.5, unlikely to be ACS. No orthostatic hypotension. Head CT reveals no acute intracranial pathology; no he morrhage, infarction, mass. Patient reports improvement in her symptoms after receiving meclizine. Discussed findings with patient, plan for discharge with meclizine 25 mg, and Zofran to use as needed. recommend contacting primary care provider to schedule follow-up visit in 1-3 days. Discussed reasons to return to the emergency department. Patient is agreeable with plan of care Time: 17:32 [facility] - Dizziness Medical Records Attestation: I reviewed the patient's medical records. Lab Data Attestation: I reviewed the patient's lab results. Result diagrams: 05/24/21 10:35 05/24/21 10:35 Labs: Lab Results 05/24/21 05/24/21 05/24/21 Range/Units 10:35 10:35 10:35 WBC 12.5 H (4.8-10.8) X10*3/uL RBC 4.54 (4.20-5.50) X10*6/uL Hgb 14.4 (12.0-16.0) g/dl Hct 41.6 (37.0-47.0) % MCV 91.6 (80.0-98.0) fL MCH 31.7 (27.0-33.0) pg MCHC 34.6 (31.0-35.0) g/dl RDW 12.1 (11.0-16.0) % Plt Count 347 (160-400) X10*3/uL MPV 9.1 L (9.4-12.3) fL Immature Gran % (Auto) 0.8 H (0.0-0.4) % Neut % (Auto) 43.9 L (45-73) % Lymph % (Auto) 27.7 (20-40) % Emmons % (Auto) 7.1 (2-11) % Eos % (Auto) 19.9 H (0-4) % Baso % (Auto) 0.6 (0-2) % Lymph # (Auto) 3.5 (1.2-4.9) X10*3/uL Emmons # (Auto) 0.9 (0.1-1.2) X10*3/uL Eos # (Auto) 2.5 H (0.0-0.4) X10*3/uL Baso # (Auto) 0.1 (0.0-0.2) X10*3/uL Abs Immat Gran (auto) 0.10 H (0.00-0.03) X10*3/uL Absolute Neuts (auto) 5.5 (2.0-8.3) x10*3/uL Absolute Nucleated RBC 0.000 (0.0-0.012) X10*3/uL Nucleated RBC % (auto) 0.0 (0.0-0.2) /100WBC Smear Tech's Comments VERIFIED Sodium 140 (135-145) mmol/L Potassium 4.3 (3.3-5.1) mmol/L Chloride 103 (96-108) mmol/L Carbon Dioxide 30 H (22-29) mmol/L Anion Gap 11 L (12-20) BUN 11 (9-16) mg/dL Creatinine 0.76 (0.5-1.4) mg/dL Estim Creat Clear Calc 87.0 Estimated GFR > 60 Random Glucose 202 H (60-115) mg/dL Calcium 10.9 H D (8.4-10.2) mg/dL Troponin I High Sens < 3.5 (<3.5-17.0) ng/L Urine Color Urine Appearance Urine pH (5.0-8.0) Ur Specific [place] (1.005-1.025) Urine Protein (NEG-TRACE) MG/DL Urine Glucose (UA) (NEG) MG/DL Urine Ketones (NEG) MG/DL Urine Blood (NEG) Urine Nitrite (NEG) Ur Leukocyte Esterase (NEG) Urine RBC (0) /HPF Urine WBC (0-4) /HPF Ur Squamous Epith Cells /LPF Amorphous Sediment /LPF Urine Bacteria /LPF Urine Mucus /LPF 05/24/21 Range/Units 10:36 WBC (4.8-10.8) X10*3/uL RBC (4.20-5.50) X10*6/uL Hgb (12.0-16.0) g/dl Hct (37.0-47.0) % MCV (80.0-98.0) fL MCH (27.0-33.0) pg MCHC (31.0-35.0) g/dl RDW (11.0-16.0) % Plt Count (160-400) X10*3/uL MPV (9.4-12.3) fL Immature Gran % (Auto) (0.0-0.4) % Neut % (Auto) (45-73) % Lymph % (Auto) (20-40) % Emmons % (Auto) (2-11) % Eos % (Auto) (0-4) % Baso % (Auto) (0-2) % Lymph # (Auto) (1.2-4.9) X10*3/uL Emmons # (Auto) (0.1-1.2) X10*3/uL Eos # (Auto) (0.0-0.4) X10*3/uL Baso # (Auto) (0.0-0.2) X10*3/uL Abs Immat Gran (auto) (0.00-0.03) X10*3/uL Absolute Neuts (auto) (2.0-8.3) x10*3/uL Absolute Nucleated RBC (0.0-0.012) X10*3/uL Nucleated RBC % (auto) (0.0-0.2) /100WBC Smear Tech's Comments Sodium (135-145) mmol/L Potassium (3.3-5.1) mmol/L Chloride (96-108) mmol/L Carbon Dioxide (22-29) mmol/L Anion Gap (12-20) BUN (9-16) mg/dL Creatinine (0.5-1.4) mg/dL Estim Creat Clear Calc Estimated GFR Random Glucose (60-115) mg/dL Calcium (8.4-10.2) mg/dL Troponin I High Sens (<3.5-17.0) ng/L Urine Color YELLOW Urine Appearance HAZY Urine pH 6.0 (5.0-8.0) Ur Specific [place] 1.020 (1.005-1.025) Urine Protein NEG (NEG-TRACE) MG/DL Urine Glucose (UA) NEG (NEG) MG/DL Urine Ketones NEG (NEG) MG/DL Urine Blood NEG (NEG) Urine Nitrite NEG (NEG) Ur Leukocyte Esterase 2+ H (NEG) Urine RBC 0 (0) /HPF Urine WBC 1-4 (0-4) /HPF Ur Squamous Epith Cells 2+ /LPF Amorphous Sediment 2+ /LPF Urine Bacteria TRACE /LPF Urine Mucus 1+ /LPF Imaging Data CT scan - head: Radiologist's impression: FINDINGS: There is no evidence of acute intracranial hemorrhage or territorial infarction. No abnormal mass effect or midline shift is seen. Harper to white matter differentiation is well preserved. No extra-axial fluid collections are identified. The ventricles are normal in size. There is no abnormal attenuation within the brain parenchyma. The osseous structures and soft tissues are normal. The mastoid air cells and visualized portions of the paranasal sinuses are well aerated. ? CT/CT head/brain wo con IMPRESSION: No acute intracranial pathology. ECG Data Attestation: I personally reviewed and interpreted this ECG as follows: ECG interpretation date: 05/24/21 ECG interpretation time: 17:02 Prior ECG tracings: available for review Interpretation: Rate: 59 Rhythm:? Sinus bradycardia Mcadoo:? Normal Normal P waves.? Normal LOULOU.?? Normal QRS complex.?? ST T wave :??No ST elevation, no ST depressions, no T-wave inversions qTC: 451 prior studies:? February 2016 The study has been interpreted contemporaneously by me. Discharge Plan Discharge Clinical Impression: Vertigo Patient Disposition: Home, Self-Care Instructions: Vertigo (ED) Additional Instructions: You have been given a new prescription for meclizine, you can take this as needed for dizziness. In addition, you can use the Zofran for nausea as needed. Please contact your primary care provider to schedule a follow-up visit in 1-3 days. You may return to the emergency department with any new or worsening symptoms or concerns. Prescriptions: New meclizine 25 mg tablet 25 mg PO BID PRN (Reason: dizziness) Qty: 14 0RF ondansetron 4 mg tablet,disintegrating 4 mg PO Q8H PRN (Reason: nausea and vomiting) 3 Days 0RF No Action amlodipine 2.5 mg tablet 2.5 mg PO DAILY Qty: 90 3RF rosuvastatin 20 mg tablet 20 mg PO DAILY Qty: 90 3RF metoprolol tartrate 50 mg tablet 50 mg PO BID Qty: 180 3RF Dexcom G6 Sensor Device 1 ea topical DIRECTED Qty: 3 11RF ([facility] [place]) pen needle, diabetic [BD Ultra-Fine Ellen Pen Needle] 32 gauge x 5/32 needle See Rx Instructions .ROUTE .MEDSUPPLY Qty: 100 3RF Rx Instructions: As directed twice a day - Dx: E10.65 - covering for Dr. Contreras ([facility] [place]) Dexcom G6 Transmitter Device See Rx Instructions .ROUTE .MEDSUPPLY Qty: 1 3RF Rx Instructions: As directed Tresiba FlexTouch U-200 200 unit/mL (3 mL) insulin pen 70 unit subcut BID Qty: 27 8RF Jardiance 25 mg tablet 25 mg PO DAILY Qty: 30 2RF Toujeo Max U-300 SoloStar 300 unit/mL (3 mL) insulin pen 70 unit subcut BID Qty: 12 4RF losartan 50 mg tablet 50 mg PO BID Qty: 180 3RF omeprazole 40 mg capsule,delayed release(DR/EC) 40 mg PO DAILY Qty: 90 3RF insulin lispro [Humalog KwikPen Insulin] 100 unit/mL insulin pen See Rx Instructions subcut TID Qty: 30 1RF Rx Instructions: 10 units before breakfast and lunch, 12 units before dinner subcut 3 times a day sulfamethoxazole-trimethoprim [Bactrim] 400-80 mg tablet 1 tab PO DAILY Qty: 10 0RF valacyclovir 500 mg tablet 500 mg PO DAILY 0RF omega-3 fatty acids [Fish Oil Concentrate] 1,000 mg capsule 1,000 mg PO DAILY 0RF albuterol sulfate 90 mcg/actuation HFA aerosol inhaler 1 puff inhalation Q4H Qty: 8.5 4RF alprazolam 0.25 mg tablet 0.25 mg PO DAILY PRN0RF oxcarbazepine 300 mg tablet 300 mg PO BID 0RF flu vac qs 2020(4 yr up)CD(PF) 60 mcg (15 mcg x 4)/0.5 mL syringe IM 0RF duloxetine 60 mg capsule,delayed release(DR/EC) 120 mg PO DAILY 0RF estradiol 10 mcg tablet 10 mcg vaginal 2XW Qty: 90 0RF budesonide-formoterol [Symbicort] 160-4.5 mcg/actuation HFA aerosol inhaler 1 puff PO Q12H 0RF clindamycin HCl 300 mg capsule 300 mg PO Q6H 0RF pyridoxine (vitamin B6) 100 mg tablet 100 mg PO DAILY 90 Days Qty: 90 1RF Jardiance 25 mg tablet 25 mg PO DAILY 0RF cholecalciferol (vitamin D3) 25 mcg (1,000 unit) capsule 25 mcg PO DAILY 30 Days Qty: 30 11RF Stand Alone Forms: Work/School Release Interventions: ED Discharge Assessment Last Done: 05/24/21 17:49 Discharge Date/Time: 05/24/21 17:51
--- NOTE | 2021-05-24 15:54 | ECG_ITS ---
Test Reason : HEADACHE Blood Pressure : / mmHG Vent. Rate : 059 BPM Atrial Rate : 059 BPM P-R Int : 136 ms QRS Dur : 116 ms QT Int : 456 ms P-R-T Axes : 056 058 052 degrees QTc Int : 451 ms Sinus bradycardia Otherwise normal ECG When compared with ECG of 20-FEB-2016 22:39, Right bundle branch block is no longer Present Referred By: Zeinab Whitlock Electronically Signed By:MAGUE CHAU MD
[2021-05-24 16:22] LABS: Troponin-I High Sensitivity < 3.5 ng/L (<3.5-17.0)
[2021-05-24 16:41] VITALS: BP 159/74; PULSE 66
[2021-05-24 16:43] VITALS: BP 168/78; PULSE 67
[2021-05-24 16:45] VITALS: BP 158/79; PULSE 67
[2021-05-24] MEDS: Meclizine HCl 25 MG TABLET PO (16:48)
== END 2021-05-24 17:51 | disposition home or self-care (01) ==
PROVIDERS: Physician Assistant Medical; Emergency Provider Emergency Medicine; PCP Internal Medicine
DX: R42 Dizziness and giddiness (principal); E11.9 Type 2 diabetes mellitus without complications; I10 Essential (primary) hypertension; E78.5 Hyperlipidemia, unspecified; Z79.4 Long term (current) use of insulin
CPT/HCPCS: 36415; 70450; 80048; 81001; 84484; 85025; 87086; 93005; 99284

== ENCOUNTER → 2021-06-21 10:45 | Outpatient (BNVA) | payer OTHER, SELFPAY | PROVIDERS: PCP Internal Medicine; Referring Provider Internal Medicine; Visit Provider Internal Medicine Cardiovascular Disease | DX: Z13.89 Encounter for screening for other disorder (principal) ==

== ENCOUNTER 2021-07-28 07:49 | Outpatient (REF) | payer OTHER, SELFPAY ==
[2021-07-28 11:26] LABS: Vitamin D 25-OH Total 32.3 ng/mL (>30)
[2021-07-29 14:46] LABS: Calcium (PTHI) 10.2 mg/dL (8.6-10.4); PTHI 30 pg/mL (16-77)
== END 2021-07-28 07:50 | disposition home or self-care (01) ==
LOC: HO.10HDL 07:49
PROVIDERS: Visit Provider Internal Medicine
DX: E55.9 Vitamin D deficiency, unspecified (principal)
CPT/HCPCS: 36415; 82306; 83970; 84100

== ENCOUNTER → 2021-07-29 10:19 | Outpatient (BNVA) | payer OTHER, SELFPAY | PROVIDERS: PCP Internal Medicine; Visit Provider Internal Medicine | DX: Z13.89 Encounter for screening for other disorder (principal) ==

== ENCOUNTER 2021-08-30 07:50 | Outpatient (REF) | payer OTHER, SELFPAY ==
--- NOTE | ~2021-08-30 | MM_ITS ---
EXAMINATION: MM DIAGNOSTIC DIGITAL BREAST TOMOSYNTHESIS, LEFT CLINICAL INFORMATION: Short interval six-month follow-up probable benign grouped calcifications posterior upper outer left breast. Prior history benign left stereotactic biopsy, 2013. TC score 16%. COMPARISON: Mammography: 02/24/2021, 02/04/2021 (BI-RADS 0); outside mammography 12/30/2019, 12/22/2018, 12/09/2017 ([facility]). TECHNIQUE: Digital breast tomosynthesis is performed in both the craniocaudal and mediolateral oblique views along with computer-aided detection (CAD). Synthesized 2D images are generated from the tomosynthesis. Additional magnification left CC x2 and magnification left ML views are obtained. FINDINGS: There are scattered areas of fibroglandular density (ACR BI-RADS breast composition Category b). Calcifications for follow-up posterior upper outer breast are tightly grouped and relatively coarse, likely fibroadenomatous change. There are increased in number from prior outside mammography but stable from prior diagnostic exam. They will be reassessed again in 6 months at time of annual bilateral diagnostic mammography. Parenchymal pattern is similar to prior studies. There are scattered stable asymmetries and chronic nodule central breast as previously noted. Results are provided to the patient at time of visit by the technologist. MM/MM tomosynthesis diagnostic LT IMPRESSION: -Calcifications for follow-up are stable from prior diagnostic exam, suspect fibroadenomatous changes. ASSESSMENT: BI-RADS 3: Probably Benign RECOMMENDATION: Diagnostic bilateral mammography in 6 months. This patient's information was entered into a reminder system with a target due date for their next mammogram.
== END 2021-08-30 07:51 | disposition home or self-care (01) ==
LOC: HO.MAMMO 07:50
PROVIDERS: PCP Internal Medicine; Visit Provider Internal Medicine
DX: R92.1 Mammographic calcification found on diagnostic imaging of breast (principal)
CPT/HCPCS: 77061; 77065

== ENCOUNTER → 2021-09-14 14:54 | Outpatient (REF) | payer OTHER, SELFPAY ==
--- NOTE | 2021-09-14 14:59 | CA_ITS ---
Transthoracic Echocardiogram Patient (Last, First, Middle): Mireya Cisneros A Gender: Female Date of : 1965 Age: 55 Procedure Date: 09/14/2021 Procedure Type: Transthoracic Echocardiogram Location: OP Height: 63. cm Weight: 198. kg BSA: 1.37 m2 Heart Rate: 63 bpm Putaway Driver: WILLI Ramirez MD: Paul Lr MD Intellectual Property Manager: Anoop Martinez MD Symptoms: I10 - Essential (primary) hypertension Study Quality: Fair ECG Rhythm: Sinus Conclusions: - The left ventricular systolic function is normal. The calculated ejection fraction is 69% by biplane method. - No obvious valvular pathology seen on this study. Findings Left Ventricle Normal left ventricular cavity size. There is normal left ventricular wall thickness. The left ventricular systolic function is normal. The calculated ejection fraction is 69% by biplane method. There is no evidence of regional wall motion abnormalities. Diastolic function is normal for age. LV peak GLS -17.7%. Right Ventricle Normal right ventricular cavity size and systolic function. Atria Both atria are normal in size. Aortic Valve The aortic valve was not well visualized. There is no aortic valve stenosis. There is no aortic valve regurgitation. Mitral Valve There is mild mitral annular calcification. There is no mitral valve regurgitation. There is no mitral valve stenosis. Pulmonic Valve The pulmonic valve is likely normal. Tricuspid Valve There is no tricuspid valve regurgitation. Tricuspid regurgitation envelope is inadequate for calculation of right ventricular systolic pressure. Great Vessels The aortic annulus, sinuses of valsalva, and asc aorta are normal in size. Venous The inferior vena cava is normal in size and collapses greater than 50% with inspiration. Pericardium/Pleural There is no evidence of pericardial effusion. Prior Study Comparison No prior study available for comparison. Recommendations, Care & Conclusions No obvious valvular pathology seen on this study. Measurements 2D Linear Measurements IVSd: 0.90 0.6-0.9/0.6-1.0 cm LVIDd: 4.99 3.9-5.3/4.2-5.9 cm LVIDd Index: 2.59 2.4-3.2/2.2-3.1 cm/m2 LVIDs: 3.12 2.0-3.6 cm LVPWd: 0.60 0.7-1.1 cm LA Diam: 3.70 2.7-3.8/3.0-4.0 cm LAIDs Index: 1.92 1.5-2.3 cm/m2 LV Mass: 155.07 67-162/88-224 g LV Mass Index: 80.35 43-95/49-115 g/m2 LVOT Diam: 2.10 3.0+(-)1.3 cm 2D Systolic Function EF 4C: 63.30 >55% EF 2C: 73.60 >55% EF BiP: 68.70 >55% Mitral Valve MV Pk E: 0.75 MV PK A: 0.96 MV Decel Time: 261.00 E/A: 0.80 E'Lateral: 9.36 E'Medial: 8.70 E/E' Med: 8.70 E/E' Lat: 8.10 PHT: 77.00 MVA PHT: 2.86 Decel Wright: 2.88 Aortic Valve AoV Pk Madhav: 1.32 AoV Mn Madhav: 0.97 AoV VTI: 0.26 AoV Pk Grad: 7.00 Aov Mn Grad: 4.00 CORINA Cont.VTI: 3.09 LVOT LVOT Pk Madhav: 1.27 LVOT Mn Madhav: 0.89 LVOT VTI: 0.24 LVOT Pk Grad: 6.00 LVOT Mn Grad: 4.00 LVOT Diam: 2.10 LVOT Area: 3.46 Diastolic Function MV Pk E: 0.75 MV Pk A: 0.96 E/A: 0.80 E'Medial: 8.70 E/E' Med: 8.70 E' Laterial: 9.36 E/E' Lat: 8.10 Right Ventricle TAPSE (mm): 23.90 TVS' Madhav: 14.00 Tricuspid Valve RA Press: 3.00 Great Vessels Aorta Sinus of Valsalva: 2.70 2.0-3.5 cm Ao Asc: 2.80 2.1-3.4 cm Pulmonary Veins Pulm Vein S/D 1.30 Pulmonary Valve PV Pk Madhav: 1.02 Peak PV Grad: 4.00 Updated in Other Vendor System with Status of Final Anoop Martinez MD electronically signed on 09/16/2021 1:26:48 PM with status of Final
== END ==
LOC: HO.CARD 14:54
PROVIDERS: PCP Internal Medicine; Visit Provider Internal Medicine Cardiovascular Disease
DX: I10 Essential (primary) hypertension (principal)
CPT/HCPCS: 93306; 93356

== ENCOUNTER 2021-11-26 | Outpatient (REF) | payer OTHER, SELFPAY | END 2021-11-26 00:01 | disposition home or self-care (01) | LOC: HO.LAB | PROVIDERS: Visit Provider Surgery | DX: L98.9 Disorder of the skin and subcutaneous tissue, unspecified (principal) | CPT/HCPCS: 11401; 88304; 88305 ==

== ENCOUNTER 2022-01-18 08:00 | Outpatient (REF) | payer OTHER, SELFPAY | END 2022-01-18 08:01 | disposition home or self-care (01) | LOC: HO.10HDL 08:00 | PROVIDERS: Visit Provider Physician Assistant | DX: Z91.010 Allergy to peanuts (principal) | CPT/HCPCS: 36415; 86003 ==

== ENCOUNTER 2022-01-28 07:42 | Outpatient (REF) | payer OTHER, SELFPAY ==
--- NOTE | ~2022-01-28 | XR_ITS ---
EXAMINATION: XR KNEE, RIGHT XR KNEE, BILATERAL CLINICAL INFORMATION: Right knee pain. COMPARISON: Right knee 01/11/2014. TECHNIQUE: Single standing view of both knees along with lateral and sunrise views of the right knee. FINDINGS: There is mild narrowing in the medial compartment on the right. The medial and lateral compartment are well preserved on the left. No chondrocalcinosis. There are some posterior osteophytes in the patella. A trace right joint effusion is present. XR/XR knee standing BI IMPRESSION: Mild bicompartmental degenerative changes right knee with small joint effusion. Normal left knee.
--- NOTE | ~2022-01-28 | XR_ITS ---
EXAMINATION: XR KNEE, RIGHT XR KNEE, BILATERAL CLINICAL INFORMATION: Right knee pain. COMPARISON: Right knee 01/11/2014. TECHNIQUE: Single standing view of both knees along with lateral and sunrise views of the right knee. FINDINGS: There is mild narrowing in the medial compartment on the right. The medial and lateral compartment are well preserved on the left. No chondrocalcinosis. There are some posterior osteophytes in the patella. A trace right joint effusion is present. XR/XR knee RT 2V IMPRESSION: Mild bicompartmental degenerative changes right knee with small joint effusion. Normal left knee.
== END 2022-01-28 07:43 | disposition home or self-care (01) ==
LOC: HO.HOSX 07:42
PROVIDERS: Visit Provider Physician Assistant
DX: M17.11 Unilateral primary osteoarthritis, right knee (principal); M25.562 Pain in left knee; M79.89 Other specified soft tissue disorders; Z79.899 Other long term (current) drug therapy; Z79.4 Long term (current) use of insulin
CPT/HCPCS: 20610; 73560; 73565; J1040

== ENCOUNTER 2022-01-28 11:54 | Outpatient (REF) | payer OTHER, SELFPAY ==
--- NOTE | ~2022-01-28 | US_ITS ---
EXAMINATION: US VENOUS ULTRASOUND WITH DOPPLER LOWER EXTREMITY, RIGHT CLINICAL INFORMATION: Swelling and pain COMPARISON: None TECHNIQUE: Ultrasound of the deep veins is performed from the hip to the calf with compression sonography and color and pulse Doppler assessment. Spectral analysis with color-flow imaging is performed. FINDINGS: There is normal venous compression and respiratory variation and augmented flow. The visualized common femoral vein, superficial femoral vein, profunda femoral vein, popliteal vein, and the trifurcation region shows no evidence of deep venous thrombosis. There is a small complex Watters's cyst measuring 2.6 x 1.7 x 2.2 cm and small joint effusion. US/US venous duplex LE RT IMPRESSION: No DVT demonstrated in the right lower extremity. Small Watters's cyst.
== END 2022-01-28 11:55 | disposition home or self-care (01) ==
LOC: HO.US 11:54
PROVIDERS: Visit Provider Physician Assistant
DX: M17.11 Unilateral primary osteoarthritis, right knee (principal); M79.89 Other specified soft tissue disorders
CPT/HCPCS: 93971

== ENCOUNTER 2022-02-25 10:00 | Outpatient (REF) | payer OTHER, SELFPAY ==
--- NOTE | ~2022-02-25 | MM_ITS ---
EXAMINATION: MM DIAGNOSTIC DIGITAL BREAST TOMOSYNTHESIS, BILATERAL CLINICAL INFORMATION: Left breast follow-up for calcifications. Yearly screening right breast mammogram COMPARISON: Mammography: 08/30/2021 and studies dating back to 12/03/2016 TECHNIQUE: Digital breast tomosynthesis is performed in both the craniocaudal and mediolateral oblique views along with computer-aided detection (CAD). Synthesized 2D images are generated from the tomosynthesis. Additional spot magnification views of the left breast in craniocaudal and 90 degree mediolateral views performed. FINDINGS: The breasts are heterogeneously dense, which may obscure small masses (ACR BI-RADS breast composition Category c). 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 Recommend diagnostic mammogram in 1 year to include spot magnification views of the left breast to ensure stability to 2 years. Results are provided to the patient at time of visit by the technologist. MM/MM tomosynthesis diagnostic BI IMPRESSION: There are no significant changes from prior study. ASSESSMENT: BI-RADS 3: Probably Benign RECOMMENDATION: Diagnostic mammography at time of next annual exam, due in 12 months. This patient's information was entered into a reminder system with a target due date for their next mammogram.
[2022-02-25 11:27] LABS: MANUAL DIFF FLAG NO
[2022-02-25 11:47] LABS: Basophils Absolute Auto 0.1 X10*3/uL (0.0-0.2); Basophils Percent Auto 0.6 % (0-2); Eosinophils Absolute Auto 0.3 X10*3/uL (0.0-0.4); Eosinophils Percent Auto 2.8 % (0-4); Hematocrit 37.6 % (37.0-47.0); Hemoglobin 13.1 g/dl (12.0-16.0); Imm Gran Abs Auto 0.16 X10*3/uL (0.00-0.03); Imm Gran Pct Auto 1.7 % (0.0-0.4); Lymphocytes Absolute Auto 2.9 X10*3/uL (1.2-4.9); Lymphocytes Percent Auto 30.2 % (20-40); Mean Corpuscular HGB Conc 34.8 g/dl (31.0-35.0); Mean Corpuscular Hemoglobin 31.8 pg (27.0-33.0); Mean Corpuscular Volume 91.3 fL (80.0-98.0); Mean Platelet Volume 9.4 fL (9.4-12.3); Monocytes Absolute Auto 0.7 X10*3/uL (0.1-1.2); Monocytes Percent Auto 7.5 % (2-11); Neutrophils Absolute Auto 5.5 x10*3/uL (2.0-8.3); Neutrophils Percent Auto 57.2 % (45-73); Platelet Count 352 X10*3/uL (160-400); Red Blood Count 4.12 X10*6/uL (4.20-5.50); White Blood Count 9.7 X10*3/uL (4.8-10.8)
[2022-02-25 12:15] LABS: Estimated Average Glucose 163 mg/dL; Hemoglobin A1c % 7.3 %
[2022-02-25 12:23] LABS: Creatinine Urine 90.37 mg/dL
[2022-02-25 12:53] LABS: Cortisol Random 3.9 ug/dL; Phosphorus 3.7 mg/dL (2.7-4.5); Vitamin D 25-OH Total 36.7 ng/mL (>30)
[2022-02-25 13:57] LABS: Alanine Aminotransferase 14 U/L (0-31); Albumin Level 4.4 g/dL (3.5-5.0); Alkaline Phosphatase 85 U/L (39-117); Anion Gap 11 (12-20); Aspartate Amino Transferase 13 U/L (5-31); Bilirubin Total 0.4 mg/dL (0.0-1.0); Blood Urea Nitrogen 12 mg/dL (9-16); Calcium 10.1 mg/dL (8.4-10.2); Carbon Dioxide 31 mmol/L (22-29); Chloride 100 mmol/L (96-108); Cholesterol 165 mg/dL; Estimated Glomerular Filt Rate > 60; Glucose Fasting 216 mg/dL (60-99); HDL Cholesterol 53 mg/dL; LDL Cholesterol Calculated 46 mg/dl; Potassium 4.5 mmol/L (3.3-5.1); Sodium 137 mmol/L (135-145); TSH reflex Free T4 1.66 uIU/mL (0.32-4.0); Total Protein 6.6 g/dL (6.5-8.0); Triglycerides 330 mg/dL
[2022-03-01 15:13] LABS: PTHI 49 pg/mL (16-77)
[2022-03-02 13:38] LABS: VITAMIN D (1,25 OH) D3 33 pg/mL; Vit D (1,25-Dihydroxy) Total 33 pg/mL (18-72); Vitamin D (1,25 OH) D2 <8 pg/mL
[2022-03-04 15:29] LABS: Calcium (PTHI) 10.7 mg/dL (8.6-10.4)
[2022-03-06 09:28] LABS: Metanephrine, Free 28 pg/mL (<=57); Normetanephrines, Free 118 pg/mL (<=148); Total Metanephrine, Free 146 pg/mL (<=205)
[2022-03-06 18:39] LABS: Angiotensin Converting Enzyme 29.5 U/L (9-67); DHEA Sulfate 17 mcg/dL (5-167)
[2022-03-09 17:29] LABS: Catecholamine Frac, Total 610 pg/mL
== END 2022-02-25 10:01 | disposition home or self-care (01) ==
LOC: HO.MAMMO 10:00
PROVIDERS: Internal Medicine; PCP Internal Medicine; Visit Provider Internal Medicine
DX: E83.52 Hypercalcemia (principal); E27.8 Other specified disorders of adrenal gland; E55.9 Vitamin D deficiency, unspecified; E11.9 Type 2 diabetes mellitus without complications; M17.0 Bilateral primary osteoarthritis of knee; E78.5 Hyperlipidemia, unspecified; R92.1 Mammographic calcification found on diagnostic imaging of breast
CPT/HCPCS: 36415; 77062; 77066; 80053; 80061; 82024; 82043; 82088; 82164; 82306; 82384; 82533; 82627; 82652; 83036; 83835; 83970; 84100; 84244; 84443; 85025